=== PATIENT | male | born 1965 | race Caucasian/White ===

== ENCOUNTER 2016-11-29 16:36 | Inpatient (IN) | payer OTHER ==
[~2016-11-29] VITALS: Ht 182.9 cm; Wt 72.0 kg
--- NOTE | 2016-11-29 17:56 | DIAGNOSTIC IMAGING REPORT ---
PROCEDURE: CT HEAD WITHOUT CONTRAST INDICATION: MENTAL STATUS CHANGE TECHNIQUE: Axial CT images were acquired through the head. Coronal and sagittal reformations were created. COMPARISON: None. FINDINGS: No intracranial hemorrhage or extraaxial fluid collections. Ventricles are normal in size, shape and position. There is no mass, mass effect or midline shift. The alvarez-white matter differentiation is normal. There is no edema. The calvarium is intact. There is some fluid in the right frontal sinus along with some mucoperiosteal thickening. The extracranial soft tissues and orbits are normal. IMPRESSION: 1. No CT evidence of acute intracranial process. Right frontal sinus fluid and mucoperiosteal thickening. 2. Findings discussed with Behzad at 05:[address] scans at this facility use dose modulation, iterative reconstruction, and/or weight-based dosing when appropriate to reduce radiation dose to as low as reasonably achievable.
--- NOTE | 2016-11-29 20:09 | DIAGNOSTIC IMAGING REPORT ---
PROCEDURE: XR CHEST 1 VIEW INDICATION: COUGH TECHNIQUE: Portable AP view (1905 hours). COMPARISON: None. FINDINGS: There are moderate increase parenchymal change in the right mid lung with mild thickening of the minor fissure. Left lung is clear. Heart and mediastinum are normal. Thorax is normal. IMPRESSION: 1. Moderate increased parenchymal changes in the right perihilar region and right mid lung. Consider pneumonia (e.g., aspiration, bacterial)) or underlying lung mass (e.g., neoplasm). 2. Findings discussed with Dr. Medardo Wen.
--- NOTE | 2016-11-29 20:48 | History & Physical Report ---
Admission Admit Date 11/29/16 Information Source Information Source: Self Reliability: Good History Chief Complaint Weakness, Falls, Feeling Unwell History of Present Illness Patient is a 51 year old male with a hx of Alcoholism and Tobacco Use Disorder. He presents to the ER at [facility] complaining of a 1 day hx of significant weakness and inability to ambulate. Pt states he woke up yesterday, and did not have the strength to stand up. He states he is now not able to walk as he is so weak. Pt states he has been feeling unwell over the last 2 weeks. Pt states he has had a cough, with intermittent tactile fever and chills as well as nausea. Pt reports he has had increasing lethargy over the last 2 weeks and his speech has been slurred over the same period of time. Pt states he does drink beer regularly. His last drink was last night. Pt states his cough is productive of thick yellow colored sputum. He denies any chest pain but does report some mild shortness of breath. On further questioninging, pt reports an unintentional 50 lb weight loss over the last 5-6 months, as well as drenching night sweats regularly. Pt denies hemoptysis. Pt has no other complaints or concerns at this time. Patient History 1. Alcoholism 2. Tobacco use disorder Social History Pt smokes 1 pack of cigarettes daily. He also regularly drinks 3-4 beers a day. He denies any hx of illicit drug use. Family History MOTHER Relation not specified for: Esophageal cancer Medications and Allergies Medications Current Medications Sig/Norberto Start time Last Medication Dose Route Stop Time Status Admin Multivit/ 1 TAB DAILY 11/30 09 UNV Folic Acid/Iron PO Thiamine HCl 100 MG DAILY 11/30 09 UNV PO Pantoprazole Sodium 40 MG DAILY@0600 11/30 0600 UNV IV Diazepam 5 MG PRN PRN 11/29 2014 UNV IV Haloperidol Lactate 2 MG Q1H PRN 11/29 2014 UNV IV Azithromycin 500 MG DAILY 11/29 2004 UNVr Sodium Chloride 250 ML IV 12/01 1000 Ceftriaxone Sodium/ 50 ML DAILY 11/29 2003 UNVr Dextrose IV Acetaminophen 650 MG Q4H PRN 11/29 1999 UNV PO Albuterol Sulfate 2.5 MG Q3H PRN 11/29 1999 UNV IN Docusate Sodium 250 MG BID PRN 11/29 1999 UNV PO Hydromorphone HCl 1 MG Q6H PRN 11/29 1999 UNV IV Naloxone HCl 0.4 MG PRN PRN 11/29 1999 UNV IV Ondansetron HCl 4 MG Q6H PRN 11/29 1999 UNV IV Zolpidem Tartrate 5 MG QHS PRN 11/29 1999 UNV PO Patient states he is not taking any medications currently. Allergies Coded Allergies: NKA (11/29/16) Review of Systems Other All systems reviewed and are negative except for what has already been mentioned in the HPI. Physical Exam Vital Signs / I&Os TEMP: 99.0 BP: 112/78 HR: 96 RR: 18 SpO2: 92% on room air GENERAL: NAD; Pt laying comfortably in bed HEENT: AT/NC; PERRLA, EOMI; MM Moist CARDIAC: RRR, No M/R/G appreciated PULM: Coarse breath sounds throughout bilateral lungs without any wheezes present ABD: Soft, NT, ND, Positive BS in all quadrants; No hepatosplenomegaly appreciated EXT: No C/C/E in bilateral upper and lower extremity; No calve tenderness bilaterally SKIN: Warm, dry, pink, and intact NEURO: Alert and oriented x3; Following all commands PSYCH: Normal mood and affect LAB Results Laboratory Tests 11/29 1711 Chemistry Plasma Sodium (136 - 145 mmol/L) Pending 123 Plasma Potassium (3.5 - 5.1 mmol/L) 4.3 Plasma Chloride (98 - 107 mmol/L) 88 CO2 (Enzymatic) (21 - 32 mmol/L) 26 BUN (7 - 18 mg/dL) 19 Creatinine (0.6 - 1.3 mg/dL) 0.8 Est GFR ( Amer) (mL/min) >60 Est GFR (Non-Af Amer) (mL/min) >60 Glucose (70 - 110 mg/dL) 111 Plasma Calcium (8.5 - 10.1 mg/dL) 7.8 Plasma Magnesium Pending Total Bilirubin (0.0 - 1.0 mg/dL) 0.4 AST (15 - 37 U/L) 53 ALT (12 - 78 U/L) 36 Alkaline Phosphatase (46 - 116 U/L) 70 Total Protein (6.4 - 8.2 g/dL) 6.5 Albumin (3.3 - 5.0 g/dL) 2.7 Hematology WBC (4.5 - 11.5 K/uL) 7.6 RBC (4.50 - 5.90 M/uL) 4.71 Hgb (13.5 - 17.5 gm/dL) 14.3 Hct (41.0 - 53.0 %) 43.0 MCV (80 - 100 fL) 91 MCH (26 - 34 pg) 30 RDW (11.6 - 14.8 %) 13.4 Neut % (Auto) (50 - 75 %) 88.0 Lymph % (Auto) (25 - 40 %) 6.4 [place] % (Auto) (3 - 14 %) 5.6 Eos % (Auto) (0 - 4 %) 0 Baso % (Auto) (0 - 2 %) 0 Plt Count, EDTA (150 - 400 K/uL) 138 PUBS MCHC (31 - 37 g/dL) 33 Microbiology Date/Time Procedure - Status Source Growth 11/29 2019 Blood Culture - RECD BLOOD 11/29 2009 Blood Culture - RECD BLOOD 11/29 170 Influenza Screen - COMP NASALPHAR Imaging XR CHEST 1 VIEW INDICATION: COUGH TECHNIQUE: Portable AP view (1905 hours). COMPARISON: None. FINDINGS: There are moderate increase parenchymal change in the right mid lung with mild thickening of the minor fissure. Left lung is clear. Heart and mediastinum are normal. Thorax is normal. IMPRESSION: 1. Moderate increased parenchymal changes in the right perihilar region and right mid lung. Consider pneumonia (e.g., aspiration, bacterial)) or underlying lung mass (e.g., neoplasm). 2. Findings discussed with Dr. Medardo Wen. Assessment and Plan Problem List 1. Hyponatremia Plan - Will admit patient under inpatient status to CCU given neurologic symptoms related to hyponatremia - Will fluid restrict patient to 1000 mL - Check Na q 2 hours for the next 12 hours - Will not give pt any IV fluids at this time - Hyponatremia is secondary to beer potomania vs related to possible chest mass 2. Pneumonia Plan - Possible community acquired pneumonia present on admission - Chest x-ray shows a possible mass in the right hilum, therefore I will order a CT of the Chest at this time with contrast - Start IV Rocephin - Start IV Azithromycin - Check Procalcitonin - Check CRP - Check urine Strep Pneumoniae Ag - Check urine Legionella Ag - Supplemental O2 to keep SpO2 greater than 92% - Albuterol nebs q 3 hours PRN - Repeat CBC with diff in AM - Influenza screen was negative 3. Alcoholism Plan - Start Alcohol Withdrawal Protocol now - Give Thiamine daily - Give Multivitamin daily - Will not start pt on banana bag at this time as I am fluid restricting him at this time and do not want to infuse Normal Saline at this time - IV Haldol PRN for hallucinations 4. Tobacco use disorder Plan - Pt counseled to quit smoking
--- NOTE | 2016-11-29 21:16 | DIAGNOSTIC IMAGING REPORT ---
PROCEDURE: CT THORAX WITH CONTRAST INDICATION: Follow up right lung pneumonia versus mass. TECHNIQUE: 125 ml of Isovue 300 injected intravenously and axial images were obtained of the entire thorax with sagittal and coronal reconstructions. COMPARISON: Compared to chest x-ray earlier today (11/29/2016). FINDINGS: There is moderate to marked consolidation/atelectasis in the right middle lobe. There are moderate parenchymal changes in the superior segment right lower lobe, with mild change in the right posterior lung base. These findings are associated with moderate right hilar adenopathy with small right pleural effusion. There are mild to moderate parenchymal changes in the left perihilar region (lingular distribution). Heart and mediastinum are normal size. Mild degenerate changes thoracic spine with accentuation of the thoracic kyphosis. IMPRESSION: 1. Moderate to marked consolidation/atelectasis in right middle lobe with moderate changes in the superior segment right lower lobe, with mild changes at the right lung base. 2. Associated right hilar adenopathy a small right pleural effusion. 3. Mild parenchymal changes in the left mid lung (lingular distribution). 4. Overall appearance is most compatible with a pneumonic process (e.g., bacterial, Mycoplasma), although right lung neoplastic process might also be considered. 5. Follow-up CT after the patient acute illness (2-3 weeks) is recommended to confirm resolution. 6. Findings discussed with Dr. Medardo Wen. All CT scans at this facility use dose modulation, iterative reconstruction, and/or weight-based dosing when appropriate to reduce radiation dose to as low as reasonably achievable.
--- NOTE | 2016-11-29 21:20 | DIAGNOSTIC IMAGING REPORT ---
PROCEDURE: CT ABD/PELVIS WITH CONTRAST INDICATION: Weight loss. Abdominal pain. Possible lung mass. . TECHNIQUE: 125 ml of Isovue 300 were injected intravenously and axial images were obtained of the entire abdomen and pelvis with sagittal and coronal reformations. COMPARISON: None. FINDINGS: ABDOMEN: Gallbladder, liver, spleen, pancreas, kidneys, and aorta are normal. Bowel pattern is normal. Appendix is not clearly identified, but no evidence of inflammatory process. Moderate degenerative changes of the lower lumbar spine. PELVIS: Pelvic structures are normal. No evidence of free fluid. IMPRESSION: 1. Negative CT abdomen and pelvis. No evidence of neoplastic process or adenopathy. 2. Findings discussed with Dr. Medardo Wen. All CT scans at this facility use dose modulation, iterative reconstruction, and/or weight-based dosing when appropriate to reduce radiation dose to as low as reasonably achievable.
--- NOTE | 2016-11-29 21:31 | ED ORDER SUMMARY ---
..... Patient: NIRAJ TOMPKINS [facility]Sheet [facility] VisitID: [id number] [place] [address] 51y, M Registration Date/Time: 11/29/2016 ORDER SHEET Weight: 79.3 kg (stated) Allergies: No Known Drug Allergy GENERAL ORDERS: CT Head wo Cont Urgent (17:04 11/29/2016 Anette Hernandez) (Ack 17:13 Ines) (17:47 MCampbell) Rapid Influenza Screen (Nasal Pharyngeal) (...) Urgent (17:05 11/29/2016 Anette Hernandez) (Ack 17:13 Ines) (17:21 LSullivan R.N.) CBC w Diff Urgent (17:05 11/29/2016 Anette Hernandez) (Ack 17:13 Ines) (17:21 LSzofiaivan R.N.) CMP Urgent (17:05 11/29/2016 Anette Hernandez) (Ack 17:13 Ines) (17:21 LSullivan R.N.) Chest 1V Urgent (18:57 11/29/2016 Anette Hernandez) (Ack 19:17 Ines) (19:42 MCampbell) Blood Culture (No) (N/A) Urgent (20:05 11/29/2016 Anette Hernandez) (Ack 20:12 CHagerty [facility] 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) (20:43 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 [facility] [employer]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) CT Thorax w Cont (No) (19/0.8) Urgent (20:11 11/29/2016 Anette Hernandez) (Ack 20:13 Rakesherty [facility] 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) (20:43 CHagerty ER [employer]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) CT Abd/Pel w Cont (No) (N/A) Urgent (20:33 11/29/2016 Isai [facility] 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 verbal order read back to Anette Hernandez) (Ack 20:36 CHagerty [facility] [employer]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 (21:48 11/29/2016)] [Electronically signed by Cipriano Yanez R.N. (07:00 11/30/2016)] [Electronically locked/signed by Cipriano Yanez R.N. (07:00 11/30/2016)]
--- NOTE | 2016-11-29 21:31 | ED CLINICAL REPORT ---
Clinical Report - Physicians/Mid Levels [facility] [address] [place] [address] 11/29/2016 16:38 Patient: NIRAJ TOMPKINS Time Seen: 16:42; initial patient contact. Arrived- By ambulance. Historian- patient. HISTORY OF PRESENT ILLNESS Chief Complaint: "FLU" and possible FLU EXPOSURE. This started about 4 days ago and is still present. It was gradual in onset. No fever, skin rash, headache, sinus drainage or sore throat. No chills, cough, difficulty breathing or chest discomfort or chest pain. No vomiting, diarrhea or loss of appetite. He has had nausea, nasal congestion and a nasal discharge. The patient has had contact with a sick individual. (Also slurred speech x 2 weeks.). Similar symptoms previously: None. Recent medical care: Not recently seen/assessed. REVIEW OF SYSTEMS No fatigue, photophobia, sinus pain, weakness or palpitations. No calf pain or abdominal pain. All systems otherwise negative, except as recorded above. PAST HISTORY RA. Surgeries: No history of previous surgery. Additional Surgeries: no known surgeries. SOCIAL HISTORY Current every day heavy tobacco smoker. Heavy alcohol use. History of drug use: marijuana. ADDITIONAL NOTES The nursing notes have been reviewed with agreement regarding the chief complaint, PMH and patient medications and allergies. PHYSICAL EXAM Vital Signs: 11/29/2016 16:49 BP: 129/74. HR: 106. RR: 18. O2 saturation: 96%. Temp: 101.5 F. Pain level now: 0/10. Have been reviewed. Blood pressure normal. Tachycardic. Respiratory rate normal. Febrile. Oxygen saturation normal. Appearance: Alert. No acute distress. Eyes: Pupils equal, round and reactive to light. Eyes normal inspection. ENT: Mild generalized pharyngeal erythema with right tonsillar swelling and left tonsillar swelling. Neck: No meningeal signs or lymphadenopathy. CVS: Normal heart rate and rhythm. Heart sounds normal. Respiratory: No respiratory distress. Breath sounds normal. Abdomen: Soft and nontender. No organomegaly. Skin: Skin warm and dry. Normal skin color. Extremities: Extremities exhibit normal ROM. No calf tenderness. No lower extremity edema. Neuro: Oriented X 3. No motor deficit. No sensory deficit. LABS, X-RAYS, AND EKG Chest X-ray: Medium-sized, patchy infiltrate in the right perihilar region and small infiltrate in the left lung. Consistent with pneumonia. Interpretation time: 20:01. CT Head: (1. No CT evidence of acute intracranial process. Right frontal sinus fluid and mucoperiosteal thickening.). Head CT performed without contrast. Prior studies were not available for comparison. The study was interpreted by the radiologist and discussed with the radiologist. Chest CT: (1. Moderate to marked consolidation/atelectasis in right middle lobe with moderate changes in the superior segment right lower lobe, with mild changes at the right lung base. 2. Associated right hilar adenopathy a small right pleural effusion. 3. Mild parenchymal changes in the left mid lung (lingular distribution). 4. Overall appearance is most compatible with a pneumonic process (e.g., bacterial, Mycoplasma), although right lung neoplastic process might also be considered. 5. Follow-up CT after the patient acute illness (2-3 weeks) is recommended to confirm resolution.). Chest CT performed with contrast. The study was independently viewed by me, interpreted by the radiologist and discussed with the radiologist. Prior studies were not available for comparison. Laboratory Tests: CBC w Diff: (WYATT: 11/29/2016 17:11) ( MsgRcvd 11/29/2016 17:23) Final results Test Result Flag Units (Reference) WHITE BLOOD COUNT 7.6 K/uL (4.5-11.5) RED BLOOD COUNT 4.71 M/uL (4.50-5.90) HEMOGLOBIN 14.3 gm/dL (13.5-17.5) HEMATOCRIT 43.0 % (41.0-53.0) MEAN CELL VOLUME 91 fL (80-100) MEAN CORPUSCULAR HGB 30 pg (26-34) MEAN CORPUSCULAR HGB CONC 33 g/dL (31-37) RED CELL DISTRIBUTION WIDTH 13.4 % (11.6-14.8) PLATELET COUNT 138 L K/uL (150-400) NEUTROPHIL % 88.0 H % (50-75) LYMPH % 6.4 L % (25-40) MONO % 5.6 % (3-14) EOSINOPHIL % 0 % (0-4) BASOPHIL % 0 % (0-2) CMP: (WYATT: 11/29/2016 17:11) ( [facility] 17[facility]45) Final results Test Result Flag Units (Reference) GLUCOSE 111 H mg/dL (70-110) BUN 19 H mg/dL (7-18) CREATININE 0.8 mg/dL (0.6-1.3) Estimated GFR >60 mL/min Estimated GFR- >60 mL/min Note: Persistent reduction over 3 months in eGFR<60 mL/min/1.73 m2 defines CKD. Patients with eGFR values>=60 mL/min/1.73 m2 may also have CKD if evidence ofpersistent proteinuria. Additional information may be foundat www.kidney.org. SODIUM 123 L mmol/L (136-145) POTASSIUM 4.3 mmol/L (3.5-5.1) CHLORIDE 88 L mmol/L (98-107) CARBON DIOXIDE 26 mmol/L (21-32) CALCIUM 7.8 L mg/dL (8.5-10.1) TOTAL PROTEIN 6.5 g/dL (6.4-8.2) ALBUMIN 2.7 L g/dL (3.3-5.0) BILIRUBIN, TOTAL 0.4 mg/dL (0.0-1.0) ALKALINE PHOSPHATASE 70 U/L (46-116) AST (SGOT) 53 H U/L (15-37) ALT (SGPT) 36 U/L (12-78) Rapid Influenza Screen: (WYATT: 11/29/2016 17:00) ( MsgRcvd 11/29/2016 17:25) Final results SPECIMEN DESCRIPTION: ... Test Result Flag Units (Reference) RAPID INFLUENZA SCREEN DATE: 11/29/16 INFLUENZA A: NEGATIVE SCREEN FOR INFLUENZA A INFLUENZA B: NEGATIVE SCREEN FOR INFLUENZA B RAPID INFLUENZA NEGATIVE FOR "A" "B". . PROGRESS AND PROCEDURES Course of Care: 11/29/2016 21:12 BP: 130/80. HR: 97. RR: 18. O2 saturation: 99%. Vital Signs: have been reviewed as normal. Disposition: Admitted to the Critical Care Unit. Condition: good. CLINICAL IMPRESSION Bacterial pneumonia. Empiric antibiotics given in the ED. Moderate hyponatremia. INSTRUCTIONS Follow-up: Screening today revealed the patient's blood pressure to be in the pre-hypertensive range. The patient was admitted and blood pressure will be managed during the admission. (Electronically signed by Medardo Wen Dr. 11/29/2016 21:48)
--- NOTE | 2016-11-29 21:31 | ED NURSING NOTES ---
Clinical Report - Nurses [facility] [place] [address] 11/29/2016 16:38 Patient: NIRAJ TOMPKINS TRIAGE Triage time 16:42. Acuity: LEVEL 3. Chief Complaint: "FLU", FEVER, COUGH, SORE THROAT and BODY ACHES and possible FLU EXPOSURE. Alert. --16:49 Jeny Louise R.N. 16:49 11/29/16. BP: 129/74. HR: 106. RR: 18. O2 saturation: 96%. Temp: 101.5 F. Pain level now: 0/10. --16:52 Jeny Louise R.N. Weight: 79.3 kg stated. Height/Length: 71 inches Per Patient. BMI: 24.4. --16:45 Jeny Louise R.N. Medications None. --18:07 Jeny Louise R.N. Allergies No Known Drug Allergy. --18:07 Jeny Louise R.N. History Arrived by EMS, and (A68). Historian: patient. Accompanied by (significant other). Primary physician (none). Onset. (2 weeks, got better, then worse today, had vomiting and diarrhea). He has had chills. ( slurred speech x 2 weeks, pt states "ketones are high"). No chest congestion. SURGERY HX: No history of previous surgery. SOCIAL HX: Heavy tobacco smoker (cigarette)- 1 pack per day. Alcohol use; consumes beer daily. (2, 14% fourloco beers). History of drug use: marijuana. No recent travel. The patient was not exposed to MRSA. FALL RISK ASSESSMENT: Fall risk assessment completed. No fall risk identified. --16:49 Jeny Louise R.N. ( Pt fell 4-5 times last night, was dizzy). --16:52 Jeny Louise R.N. PROBLEMS: Rheumatoid Arthritis. --16:43 Jeny Louise R.N. ADDITIONAL SURGERIES: no known surgeries. Interventions ID band on patient. To room. --16:49 Jeny Louise R.N. PHYSICAL ASSESSMENT GENERAL / NEURO / PSYCH: Alert. ( Pt's speech is difficult to understand at times.). --16:52 Jeny Louise R.N. NURSING PROGRESS NOTES 16:54 11/29/16. Patient identifiers checked. Call light placed in reach. Bed placed in lowest position. Patient ready for evaluation- chart flagged. --16:54 Jeny Louise R.N. 17:22 11/29/2016 Site #1 started via IV in the right forearm with an 20g angiocath, with aseptic technique and good blood return; one attempt. Blood drawn (able to draw a red and purple top only). --17:22 Jeny Louise R.N. 17:22 11/29/2016 Started bag #1 1000 mL IV Fluids IV NS (Saline); at 999 mL/hr via site #1 via IV pump. Confirmed 5 rights. --17:22 Jeny Louise R.N. 17:55 11/29/2016 Zofran (Ondansetron HCl) IVP 4 mg given over 2 minute(s) via site #1. Allergies verified and confirmed 5 rights. --17:55 Jeny Louise R.N. 17:55 11/29/16. Patient returned from CT by stretcher with tech. ( Pt nauseated, emesis bag placed in hand, ERMD notified). --17:55 Jeny Louise R.N. 19:03 11/29/16. BP: 136/82. HR: 99. RR: 18. O2 saturation: 95%. --19:04 Jeny Louise R.N. 19:05 11/29/2016 IV Fluids IV NS Discontinued: bag #1 infused. Total amount infused: 1000 mL. IV patency established. IV site checked: no pain, redness, or swelling. IV flushed thoroughly. (converted to saline lock). --19:05 Jney Louise R.N. 19:05 11/29/16. ( Portable chest xray done.). --19:05 Jeny Louise R.N. 19:14 11/29/16. Care transferred and report given (to PEE Cota). --19:14 Jeyn Louise R.N. 20:00 11/29/16. BP: 115/54. HR: 109. RR: 18. O2 saturation: 92%. --20:01 Cipriano Yanez R.N. 20:46 11/29/2016 Started 1 gm of Ceftriaxone IVPB in bag #1 50 mL; at 100 mg/hr over 30 minute(s) via site #1 via IV pump. Allergies verified and confirmed 5 rights. IV patency established. IV site checked: no pain, redness, or swelling. IV flushed thoroughly pre- and post-medication administration. --20:46 Cipriano Yanez R.N. 20:46 11/29/16. BP: 133/79. HR: 96. RR: 18. O2 saturation: 96%. --20:47 Cipriano Yanez R.N. 21:02 11/29/2016 Ceftriaxone IVPB Discontinued: bag #1 infused. Total amount infused: 50 mL. IV patency established. IV site checked: no pain, redness, or swelling. IV flushed thoroughly. --21:02 Cipriano Yanez R.N. ( 3% saline not available at this time, MD aware). --21:13 Cipriano Yanez R.N. 21:12 11/29/16. BP: 130/80. HR: 97. RR: 18. O2 saturation: 99%. --21:13 Cipriano Yanez R.N. DISPOSITION / DISCHARGE Admitted to the Critical Care Unit. Report was given to a nurse via a phone call. Report included patient's care, treatment, medications, reviewed medication reconcilliation, and condition (including any recent changes or anticipated changes). Report was acknowledged. (Report called to ccu). ( Pt verbalized understanding of admission call questions answered at this time). Patient's personal items include: shirt and pants. --22:05 Cipriano Yanez R.N. 22:00 11/29/16. BP: 134/72. HR: 80. RR: 18. O2 saturation: 99%. Temp: 102.8 F. Pain level now 0/10. --22:05 Cipriano Yanez R.N. ( 0 MD aware of temp no orders at this time. Accepting RN aware of Temp). --02:04 Cipriano Yanez R.N. Locked/Released at 11/30/2016 7:00 by Cipriano Yanez R.N.
--- NOTE | 2016-11-29 21:31 | ED ORDER SUMMARY ---
..... Patient: NIRAJ TOMPKINS OrderSheet [facility] VisitID: [id number] [place] [address] 51y, M Registration Date/Time: 11/29/2016 ORDER SHEET Weight: 79.3 kg (stated) Allergies: No Known Drug Allergy GENERAL ORDERS: CT Head wo Cont Urgent (17:04 11/29/2016 Anette Hernandez) (Ack 17:13 Ines) (17:47 MCampbell) Rapid Influenza Screen (Nasal Pharyngeal) (...) Urgent (17:05 11/29/2016 Anette Hernandez) (Ack 17:13 Ines) (17:21 LSullivan R.N.) CBC w Diff Urgent (17:05 11/29/2016 Anette Hernandez) (Ack 17:13 Ines) (17:21 LSzofiaivan R.N.) CMP Urgent (17:05 11/29/2016 Anette Hernandez) (Ack 17:13 Ines) (17:21 LSullivan R.N.) Chest 1V Urgent (18:57 11/29/2016 Anette Hernandez) (Ack 19:17 Ines) (19:42 MCampbell) Blood Culture (No) (N/A) Urgent (20:05 11/29/2016 Anette Hernandez) (Ack 20:12 CHagerty ER Music Assistant) (20:43 CHagerty ER Music Assistant) CT Thorax w Cont (No) (19/0.8) Urgent (20:11 11/29/2016 Anette Hernandez) (Ack 20:13 Rakesherty ER Music Assistant) (20:43 CHagerty ER Music Assistant) CT Abd/Pel w Cont (No) (N/A) Urgent (20:33 11/29/2016 Isai ER Music Assistant verbal order read back to Anette Hernandez) (Ack 20:36 CHagerty ER Music Assistant) (20:43 CHagclarice ER Music Assistant) MEDICATION ORDERS: - (3% saline IV @ 20mL/hour) (20:08 11/29/2016 Anette Hernandez) IV FLUIDS: IV NS : initial bolus none -, then 1000 mL/hr for X1 (NOW) (17:03 11/29/2016 Anette Hernandez) (17:22 Vadim R.N.) Zofran IV 4 mg (NOW) (17:55 11/29/2016 Anette Hernandez) (17:55 Vadim R.N.) Ceftriaxone IV 1 gm/50mL (NOW) (20:10 11/29/2016 Anette Hernandez) (20:46 Chad Miles.Roosevelt) ORDER SHEET NOTES: [Electronically signed by Medardo Wen Dr. (21:48 11/29/2016)] [Electronically signed by Cipriano Yanez R.N. (07:00 11/30/2016)] [Electronically locked/signed by Cipriano Yanez R.N. (07:00 11/30/2016)]
[2016-11-29 22:33] VITALS: BP 140/82
[2016-11-29 23:30] VITALS: BP 146/79
[2016-11-30] VITALS (23 sets, daily range): BP systolic 104–148; BP diastolic 58–85
--- NOTE | 2016-11-30 01:07 | NUR ---
Pt arrived via stretcher from ED, pt stood to transfer to bed, pt has generalized weakness and speech can be quiet and mumbled, GARRISON, all extremities WNR, no pain issues. SR-ST 90-120 no ectopy, fluid restriction 1000cc/24hr, few right rhonchi, strong moist non productive cough, pt reports coughing yellow sputum prior to admission at home. Pt reports poor appetite/ weight loss. Pt reports girl friend had been "sick for a couple of weeks but is over it now". Pt reports having many falls at home. Temp upon admit 99.7 oral. Call light in reach and bed alarm on for safety and fall prevention.
--- NOTE | 2016-11-30 07:00 | ED DISCHARGE INSTRUCTIONS ---
Patient: NIRAJ TOMPKINS General Instructions [facility] VisitID: [id number] [address] [place] [place] [address] 51y, M Registration Date/Time: 11/29/2016 Bacterial pneumonia. Empiric antibiotics given in the ED. Moderate hyponatremia. INSTRUCTIONS Follow-up: Screening today revealed the patient's blood pressure to be in the pre-hypertensive range. The patient was admitted and blood pressure will be managed during the admission. (Electronically signed by Medardo Wen Dr. 11/29/2016 21:48)
--- NOTE | 2016-11-30 07:00 | ED MAR SUMMARY ---
..... Medication Administration Record [facility] [address] [place] [address] Patient: NIRAJ TOMPKINS Visit ID: [id number] 51y, M Weight: 79.3 kg Height/Length: 71 in BMI: 24.4 ALLERGIES: No Known Drug Allergy Start 17:22 11/29/2016 Jeny Louise R.N., Stop 19:05 11/29/2016 Jeny Louise R.N. Medication Administered: IV NS (SALINE), Dose: IV Fluids, Rate: 999 mL/hr, Dispensed: 1000 mL bag, Site: #1 right forearm. Medication Ordered: IV NS : initial bolus none -, then 1000 mL/hr for X1 (NOW). Given 17:55 11/29/2016 Jeny Louise R.N. Medication Administered: ZOFRAN [IVP] (ONDANSETRON HCL), Dose: 4 mg IVP over 2 minute(s), Site: #1 right forearm. Medication Ordered: Zofran IV 4 mg (NOW). Start 20:46 11/29/2016 Cipriano Yanez R.N., Stop 21:02 11/29/2016 Cipriano Yanez R.N. Medication Administered: CEFTRIAXONE [IVPB], Dose: 1 gm IVPB over 30 minute(s), Rate: 100 mg/hr, Dispensed: 50 mL bag, Site: #1 right forearm. Medication Ordered: Ceftriaxone IV 1 gm/50mL (NOW).
--- NOTE | 2016-11-30 07:00 | ED DISCHARGE INSTRUCTIONS ---
Patient: NIRAJ TOMPKINS General Instructions [facility] VisitID: [id number] [address] [place] [address] 51y, M Registration Date/Time: 11/29/2016 Bacterial pneumonia. Empiric antibiotics given in the ED. Moderate hyponatremia. INSTRUCTIONS Follow-up: Screening today revealed the patient's blood pressure to be in the pre-hypertensive range. The patient was admitted and blood pressure will be managed during the admission. (Electronically signed by Medardo Wen Dr. 11/29/2016 21:48)
--- NOTE | 2016-11-30 07:00 | ED MAR SUMMARY ---
..... Medication Administration Record [facility] [address] [place] [address] Patient: NIRAJ TOMPKINS Visit ID: [id number] 51y, M Weight: 79.3 kg Height/Length: 71 in BMI: 24.4 ALLERGIES: No Known Drug Allergy Start 17:22 11/29/2016 Jeny Louise R.N., Stop 19:05 11/29/2016 Jeny Louise R.N. Medication Administered: IV NS (SALINE), Dose: IV Fluids, Rate: 999 mL/hr, Dispensed: 1000 mL bag, Site: #1 right forearm. Medication Ordered: IV NS : initial bolus none -, then 1000 mL/hr for X1 (NOW). Given 17:55 11/29/2016 Jeny Louise R.N. Medication Administered: ZOFRAN [IVP] (ONDANSETRON HCL), Dose: 4 mg IVP over 2 minute(s), Site: #1 right forearm. Medication Ordered: Zofran IV 4 mg (NOW). Start 20:46 11/29/2016 Cipriano Yanez R.N., Stop 21:02 11/29/2016 Cipriano Yanez R.N. Medication Administered: CEFTRIAXONE [IVPB], Dose: 1 gm IVPB over 30 minute(s), Rate: 100 mg/hr, Dispensed: 50 mL bag, Site: #1 right forearm. Medication Ordered: Ceftriaxone IV 1 gm/50mL (NOW).
--- NOTE | 2016-11-30 07:01 | ED MED RECONCILIATION SUMMARY ---
Patient: NIRAJ TOMPKINS Medication Reconciliation Report [facility] VisitID: [id number] [address] [place] [address] 51y, M Registration Date/Time: 11/29/2016 Weight: 79.3 kg Height/Length: 71 in. BMI: 24.4 ALLERGIES: No Known Drug Allergy The patient's Home Medications are listed below: NONE. The source(s) of the original Home Medication information: Not obtained. The following Medications were given to the patient in the Emergency Department: IV NS IV Fluids bolus 0, then 999 mL/hr, administered: 11/29/2016 5:22:00 PM Zofran [IVP] IVP 4 mg, administered: 11/29/2016 5:55:00 PM Ceftriaxone [IVPB] IVPB bolus 0, then 1 gm 100 mg/hr, administered: 11/29/2016 8:46:00 PM The following Medications were prescribed to the patient: None.
--- NOTE | 2016-11-30 07:01 | ED MED RECONCILIATION SUMMARY ---
Patient: NIRAJ TOMPKINS Medication Reconciliation Report [facility] VisitID: [id number] [address] [place] [address] 51y, M Registration Date/Time: 11/29/2016 Weight: 79.3 kg Height/Length: 71 in. BMI: 24.4 ALLERGIES: No Known Drug Allergy The patient's Home Medications are listed below: NONE. The source(s) of the original Home Medication information: Not obtained. The following Medications were given to the patient in the Emergency Department: IV NS IV Fluids bolus 0, then 999 mL/hr, administered: 11/29/2016 5:22:00 PM Zofran [IVP] IVP 4 mg, administered: 11/29/2016 5:55:00 PM Ceftriaxone [IVPB] IVPB bolus 0, then 1 gm 100 mg/hr, administered: 11/29/2016 8:46:00 PM The following Medications were prescribed to the patient: None.
--- NOTE | 2016-11-30 08:54 | Progress Note ---
Subjective General Note Date: November 30, 2016 Admission Date: November 29, 2016 Hospital Day: 2 PCP: None Status: Inpatient Advanced Directive: FULL CODE Room: 304 Brief History: The patient is a 51-year-old white male with a significant past medical history of alcohol abuse/dependence, nicotine dependence-smoking, who presented to [facility] emergency department secondary to complaints of weakness, recurrent falls, and generalized malaise. [facility] ER evaluation was consistent with pneumonia, hyponatremia, alcohol abuse/dependence, and nicotine dependence-smoking. Secondary to the above, the patient was admitted by Christian Forrest M.D. for further evaluation and treatment. For other history present illness, past medical history, family history, social history, review of systems, and admission physical examination please see the patient's history and physical examination and ER visit note in the patient's medical record. Subjective: The patient states he is doing okay today other than generalized weakness. No nausea or vomiting. Patient requests: None Medications and Allergies Medications Current Medications Sig/Norberto Start time Last Medication Dose Route Stop Time Status Admin Ceftriaxone Sodium/ 50 ML Q24H 11/30 1999 AC 11/29 Dextrose IV 2320 Multivit/ 1 TAB DAILY 11/30 09 AC 11/30 Folic Acid/Iron PO 0851 Thiamine HCl 100 MG DAILY 11/30 0900 AC 11/30 PO 0851 Pantoprazole Sodium 40 MG DAILY@0600 11/30 0600 AC 11/30 IV 0559 Azithromycin 500 MG Q24H 11/29 2100 AC 11/29 Sodium Chloride 250 ML IV 12/01 2200 2351 Diazepam 5 MG PRN PRN 11/29 2014 AC IV Haloperidol Lactate 2 MG Q1H PRN 11/29 2014 AC IV Acetaminophen 650 MG Q4H PRN 11/29 1999 AC 11/30 PO 0851 Albuterol Sulfate 2.5 MG Q3H PRN 11/29 1999 AC IN Docusate Sodium 250 MG BID PRN 11/29 1999 AC PO Hydromorphone HCl 1 MG Q6H PRN 11/29 1999 AC IV Naloxone HCl 0.4 MG PRN PRN 11/29 1999 AC IV Ondansetron HCl 4 MG Q6H PRN 11/29 1999 AC IV Zolpidem Tartrate 5 MG QHS PRN 11/29 1999 AC PO Allergies Coded Allergies: NKA (11/30/16) Physical Exam Vital Signs / I&Os Vital Signs Date Time Temp Pulse Resp B/P Pulse O2 O2 Flow FiO2 Ox Delivery Rate 11/30 0735 102.6 11/30 0733 100 14 140/72 93 Nasal Cannula 11/30 0530 93 109/67 97 Nasal 2.0 Cannula 11/30 0515 94 99 Nasal 2.0 Cannula 11/30 0411 91 22 117/74 92 Nasal 2.0 Cannula 11/30 0330 Nasal 2.0 Cannula 11/30 0322 92 22 123/71 90 Room Air 11/30 0259 100.0 99 22 129/76 99 Room Air 11/30 0121 101.3 101 22 148/77 91 Room Air 11/30 0019 76 22 144/84 98 Room Air 11/29 2330 98 22 146/79 94 Room Air 11/29 2233 99.7 100 22 140/82 94 Room Air I&O 11/30 0000 11/29 1600 11/29 0800 Intake Total Output Total Balance General Appearance Oriented X3, Cooperative, No acute distress, Lethargic. Lungs Scattered rhonchi, otherwise clear to auscultation Cardiovascular Regular rate and rhythm, Normal S1 and S2 Abdomen Normal bowel sounds, Soft, No tenderness Extremities No cyanosis, No clubbing, No edema Neurological Cranial nerves intact, No lateralizing signs, generalized weakness. Finger to nose within normal limits. LAB Results Laboratory Tests 11/30 11/30 11/30 11/30 11/30 0825 0759 0405 0405 0405 Chemistry Plasma Sodium (136 - 145 mmol/L) 127 125 Plasma Potassium (3.5 - 5.1 mmol/L) 3.5 Plasma Chloride (98 - 107 mmol/L) 90 CO2 (Enzymatic) (21 - 32 mmol/L) 28 BUN (7 - 18 mg/dL) 17 Creatinine (0.6 - 1.3 mg/dL) 0.9 Est GFR ( Amer) (mL/min) >60 Est GFR (Non-Af Amer) (mL/min) >60 Glucose (70 - 110 mg/dL) 108 Plasma Calcium (8.5 - 10.1 mg/dL) 7.5 Ammonia Pending C-Reactive Protein (0.0 - 0.9 mg/dL) 28.1 Procalcitonin (0 - 0.5 ng/mL) 5.9 Coagulation INR Pending Hematology WBC (4.5 - 11.5 K/uL) 6.7 RBC (4.50 - 5.90 M/uL) 4.27 Hgb (13.5 - 17.5 gm/dL) 12.8 Hct (41.0 - 53.0 %) 38.9 MCV (80 - 100 fL) 91 MCH (26 - 34 pg) 30 RDW (11.6 - 14.8 %) 13.8 Neut % (Auto) (50 - 75 %) 87.0 Lymph % (Auto) (25 - 40 %) 7.1 [place] % (Auto) (3 - 14 %) 5.9 Eos % (Auto) (0 - 4 %) 0 Baso % (Auto) (0 - 2 %) 0 Plt Count, EDTA (150 - 400 K/uL) 125 PUBS MCHC (31 - 37 g/dL) 33 11/30 11/30 11/30 11/29 11/29 0305 0130 UNK 2330 2009 Chemistry Plasma Sodium (136 - 145 mmol/L) 125 121 122 123 Ammonia Cancelled Coagulation INR Cancelled Toxicology Urine Opiates Screen Cancelled Urine Methadone Screen Cancelled Ur Barbiturates Screen Cancelled U Amphetamin/Meth Scrn Cancelled MDMA (Ecstasy) Screen Cancelled U Benzodiazepines Scrn Cancelled Urine Cocaine Screen Cancelled U Cannabinoids Screen Cancelled 11/29 1711 Chemistry Plasma Sodium (136 - 145 mmol/L) 123 Plasma Potassium (3.5 - 5.1 mmol/L) 4.3 Plasma Chloride (98 - 107 mmol/L) 88 CO2 (Enzymatic) (21 - 32 mmol/L) 26 BUN (7 - 18 mg/dL) 19 Creatinine (0.6 - 1.3 mg/dL) 0.8 Est GFR ( Amer) (mL/min) >60 Est GFR (Non-Af Amer) (mL/min) >60 Glucose (70 - 110 mg/dL) 111 Plasma Calcium (8.5 - 10.1 mg/dL) 7.8 Plasma Magnesium (1.8 - 2.4 mg/dL) 1.9 Total Bilirubin (0.0 - 1.0 mg/dL) 0.4 AST (15 - 37 U/L) 53 ALT (12 - 78 U/L) 36 Alkaline Phosphatase (46 - 116 U/L) 70 Total Protein (6.4 - 8.2 g/dL) 6.5 Albumin (3.3 - 5.0 g/dL) 2.7 Hematology WBC (4.5 - 11.5 K/uL) 7.6 RBC (4.50 - 5.90 M/uL) 4.71 Hgb (13.5 - 17.5 gm/dL) 14.3 Hct (41.0 - 53.0 %) 43.0 MCV (80 - 100 fL) 91 MCH (26 - 34 pg) 30 RDW (11.6 - 14.8 %) 13.4 Neut % (Auto) (50 - 75 %) 88.0 Lymph % (Auto) (25 - 40 %) 6.4 [place] % (Auto) (3 - 14 %) 5.6 Eos % (Auto) (0 - 4 %) 0 Baso % (Auto) (0 - 2 %) 0 Plt Count, EDTA (150 - 400 K/uL) 138 PUBS MCHC (31 - 37 g/dL) 33 Microbiology Date/Time Procedure - Status Source Growth 11/30 0001 MRSA Screen - RECD NASAL 11/29 2019 Blood Culture - RECD BLOOD 11/29 2009 Blood Culture - RECD BLOOD 11/29 1700 Influenza Screen - COMP NASALPHAR Imaging CT Scan Chest IMPRESSION: 1. Moderate to marked consolidation/atelectasis in right middle lobe with moderate changes in the superior segment right lower lobe, with mild changes at the right lung base. 2. Associated right hilar adenopathy a small right pleural effusion. 3. Mild parenchymal changes in the left mid lung (lingular distribution). 4. Overall appearance is most compatible with a pneumonic process (e.g., bacterial, Mycoplasma), although right lung neoplastic process might also be considered. 5. Follow-up CT after the patient acute illness (2-3 weeks) is recommended to confirm resolution. 6. Findings discussed with Dr. Medardo Wen. All CT scans at this facility use dose modulation, iterative reconstruction, and/or weight-based dosing when appropriate to reduce radiation dose to as low as reasonably achievable. Dictated by: YAHAIRA HERNANDEZ MD D: LISA;11/29/16 2534 Assessment and Plan Problem List 1. Hyponatremia Plan -Improved -Sodium 127 (121-11/29/2016) -Continue present therapy -Monitor 2. Pneumonia Plan -Persistent fever -WBC within normal limits -Procalcitonin elevated at 5.9 -We'll add Zosyn to current medical regimen for enhance gram-negative/anaerobe therapy -Monitor 3. Alcoholism Plan -Patient with history of alcohol abuse -Alcohol withdrawal protocol -No clear alcohol withdrawal symptoms at this time. -Monitor 4. Illicit drug use Status Chronic Onset Date Unknown Plan -Patient with history of illicit drug use -Use of methamphetamine/marijuana -Encourage enrollment in alcohol/drug treatment post hospitalization -Monitor 5. Tobacco use disorder Plan -NicoDerm when necessary -Smoking cessation education -Encourage smoking abstinence post discharge Current status: Fair, unstable Anticipated discharge date: Anticipated discharge in 3-4 days Anticipated discharge placement: Home Patient care time: Time spent in chart review, patient interview, physical exam, CPOE, and care documentation: 35 minutes Visit to patient today: 1 Complexity of care: High E&M Codes Rounding: Inpt-High/[id number]
--- NOTE | 2016-11-30 20:06 | NUR ---
Patient has been sleeping most of the day. Patient wakes easily, but it's difficult to understand his speech. Does not show any signs of ETOH withdrawal. Has been incontinent of urine and stool, notified Dr. Beach of patient's loose stool and orders received to obtain stool sample for Cdiff. Patient is slightly tachycardic at times. No complaints of pain, nausea, or vomiting. Patient's bottom is red due to being incontinent of stool, and patient has two dime size open pressure sores on his back, at hip line. Photographic wound documentation form done and wound consult entered.
[2016-12-01] VITALS (19 sets, daily range): BP systolic 112–138; BP diastolic 54–93
--- NOTE | 2016-12-01 04:23 | NUR ---
Pt more alert and more responsive when questions are asked, 2 assist to BSC for a void and small stool. UA sent. Strong non-productive cough, 2 L n/c to maintain sats greater than 92%, pt will remove during night sats drop 85-87%, no exertional dyspnea, maintaining fluid restriction. Bed alarm for safety/fall prevention as pt will forget to use call light and attempt to self transfer and pt too weak.
--- NOTE | 2016-12-01 08:02 | Progress Note ---
Subjective General Note Date: December 01, 2016 Admission Date: November 29, 2016 Hospital Day: 3 PCP: None Status: Inpatient Advanced Directive: FULL CODE Room: 304 Brief History: The patient is a 51-year-old white male with a significant past medical history of alcohol abuse/dependence, nicotine dependence-smoking, who presented to [facility] emergency department secondary to complaints of weakness, recurrent falls, and generalized malaise. [facility] ER evaluation was consistent with pneumonia, hyponatremia, alcohol abuse/dependence, and nicotine dependence-smoking. Secondary to the above, the patient was admitted by Christian Forrest M.D. for further evaluation and treatment. For other history present illness, past medical history, family history, social history, review of systems, and admission physical examination please see the patient's history and physical examination and ER visit note in the patient's medical record. Subjective: The patient states he is doing okay today other than generalized weakness. No nausea or vomiting. Denies shortness of breath. Weakness slightly improved Patient requests: None Medications and Allergies Medications Current Medications Sig/Norberto Start time Last Medication Dose Route Stop Time Status Admin Ceftriaxone Sodium/ 50 ML Q24H 11/30 1999 AC 11/30 Dextrose IV 2000 Piperacillin/ 50 ML Q6HR 11/30 1800 AC 12/01 Tazobactam/Dextrose IV 0527 Multivit/ 1 TAB DAILY 11/30 0911/30 Folic Acid/Iron PO 0851 Thiamine HCl 100 MG DAILY 11/30 0900 AC 11/30 PO 0851 Pantoprazole Sodium 40 MG DAILY@0600 11/30 0600 AC 12/01 IV 0527 Azithromycin 500 MG Q24H 11/29 2100 11/30 Sodium Chloride 250 ML IV 12/01 Diazepam 5 MG PRN PRN 11/29 2014 AC IV Haloperidol Lactate 2 MG Q1H PRN 11/29 2014 AC IV Acetaminophen 650 MG Q4H PRN 11/29 1999 AC 11/30 PO 1714 Albuterol Sulfate 2.5 MG Q3H PRN 11/29 1999 AC IN Docusate Sodium 250 MG BID PRN 11/29 1999 AC PO Hydromorphone HCl 1 MG Q6H PRN 11/29 1999 AC IV Naloxone HCl 0.4 MG PRN PRN 11/29 1999 AC IV Ondansetron HCl 4 MG Q6H PRN 11/29 1999 AC IV Zolpidem Tartrate 5 MG QHS PRN 11/29 1999 AC PO Allergies Coded Allergies: NKA (11/30/16) Physical Exam Vital Signs / I&Os Vital Signs Date Time Temp Pulse Resp B/P Pulse O2 O2 Flow FiO2 Ox Delivery Rate 12/01 0717 105 21 123/54 97 Nasal 2.0 Cannula 12/01 0655 98.1 92 17 132/67 95 Nasal 2.0 Cannula 12/01 0400 92 17 128/75 92 Nasal 2.0 Cannula 12/01 0332 98.1 12/01 0300 94 20 127/65 97 Nasal 2.0 Cannula 12/01 0200 105 20 131/71 94 Nasal 2.0 Cannula 12/01 0100 100 20 134/84 95 Nasal 2.0 Cannula 12/01 0000 98.6 90 17 138/71 99 Nasal 2.0 Cannula 11/30 2300 101 22 140/68 94 Nasal 2.0 Cannula 11/30 2213 99 22 119/61 96 Nasal 2.0 Cannula 11/30 2100 93 19 119/61 97 Nasal 2.0 Cannula 11/30 2007 85 15 125/64 94 Nasal 2.0 Cannula 11/30 1905 98.8 90 15 133/67 95 Nasal 2.0 Cannula 11/30 1818 99.0 108 20 126/58 95 Nasal 2.0 Cannula 11/30 1700 92 21 140/81 100 Nasal 0.0 Cannula 11/30 1600 100.0 100 22 137/70 87 Nasal 0.0 Cannula 11/30 1559 99.0 11/30 1500 100 20 136/66 90 Nasal 0.0 Cannula 11/30 1400 101 20 117/81 100 Nasal 0.0 Cannula 11/30 1300 136/79 11/30 1300 101.7 93 17 97 Nasal 0.0 Cannula 11/30 1200 89 17 127/85 97 Nasal 0.0 Cannula 11/30 1100 89 16 125/68 93 Nasal 0.0 Cannula 11/30 1000 98.8 87 16 104/82 93 Nasal 0.0 Cannula 11/30 0900 101 19 132/71 95 Nasal 0.0 Cannula 11/30 0800 Nasal 2.0 Cannula 11/30 0800 102 20 128/78 94 Nasal 0.0 Cannula I&O 12/01 0000 11/30 1600 11/30 0800 Intake Total 400 280 300 Output Total 450 225 Balance 400 -170 75 General Appearance Cooperative, No acute distress, slightly lethargic Lungs Clear to auscultation Cardiovascular Regular rate and rhythm, Normal S1 and S2 Abdomen Normal bowel sounds, Soft, No tenderness Extremities No cyanosis, No clubbing, No edema Neurological Cranial nerves intact, No lateralizing signs, generalized weakness Psych/Mental Status Mood normal, slightly lethargic LAB Results Laboratory Tests 12/01 12/01 11/30 0507 0110 0825 Chemistry Plasma Sodium (136 - 145 mmol/L) 127 Plasma Potassium (3.5 - 5.1 mmol/L) 3.4 Plasma Chloride (98 - 107 mmol/L) 92 CO2 (Enzymatic) (21 - 32 mmol/L) 29 BUN (7 - 18 mg/dL) 11 Creatinine (0.6 - 1.3 mg/dL) 0.8 Est GFR ( Amer) (mL/min) >60 Est GFR (Non-Af Amer) (mL/min) >60 Glucose (70 - 110 mg/dL) 103 Plasma Calcium (8.5 - 10.1 mg/dL) 7.6 Total Bilirubin (0.0 - 1.0 mg/dL) 0.3 AST (15 - 37 U/L) 122 ALT (12 - 78 U/L) 72 Alkaline Phosphatase (46 - 116 U/L) 58 Ammonia (11 - 32 umol/L) < 10 Total Protein (6.4 - 8.2 g/dL) 6.0 Albumin (3.3 - 5.0 g/dL) 2.1 Coagulation INR (0.8 - 1.2) 0.9 Hematology WBC (4.5 - 11.5 K/uL) 5.6 RBC (4.50 - 5.90 M/uL) 4.16 Hgb (13.5 - 17.5 gm/dL) 12.5 Hct (41.0 - 53.0 %) 38.2 MCV (80 - 100 fL) 92 MCH (26 - 34 pg) 30 RDW (11.6 - 14.8 %) 14.2 Neut % (Auto) (50 - 75 %) 63 Lymph % (Auto) (25 - 40 %) 7 [place] % (Auto) (3 - 14 %) 4 Eos % (Auto) (0 - 4 %) 0 Baso % (Auto) (0 - 2 %) 0 Band Neutrophils % (0 - 8 %) 26 Metamyelocytes % (0 - 1 %) 0 Myelocytes (0 - 1 %) 0 Other Cell Type 0 Plt Count, EDTA (150 - 400 K/uL) 127 Anisocytosis (manual) 1+ PUBS MCHC (31 - 37 g/dL) 33 Toxicology Urine Opiates Screen (NEGATIVE) NEGATIVE Urine Methadone Screen (NEGATIVE) NEGATIVE Ur Barbiturates Screen (NEGATIVE) NEGATIVE U Amphetamin/Meth Scrn (NEGATIVE) POSITIVE MDMA (Ecstasy) Screen (NEGATIVE) NEGATIVE U Benzodiazepines Scrn (NEGATIVE) NEGATIVE Urine Cocaine Screen (NEGATIVE) NEGATIVE U Cannabinoids Screen (NEGATIVE) POSITIVE Urines Urine Color YELLOW Urine Appearance CLEAR Urine pH (5.0 - 8.0) 6.0 Ur Specific [place] (1.010 - 1.030) >= 1.030 Urine Protein (NEGATIVE) 2+ Urine Ketones (NEGATIVE) NEGATIVE Urine Blood (NEGATIVE) 1+ Urine Nitrite (NEGATIVE) NEGATIVE Urine Bilirubin (NEGATIVE) NEGATIVE Urine Urobilinogen (0.2 - 1.0 EU/dL) 0.2 Ur Leukocyte Esterase (NEGATIVE) NEGATIVE Urine RBC (0 - 1 rbc/hpf) 1-3 Urine WBC (0 - 1 wbc/hpf) 0-1 Ur Epithelial Cells (0 - 5 EPI/hpf) 1-3 Urine Bacteria (NONE SEEN) TRACE (<1+) Urine Glucose (NEGATIVE) NEGATIVE Urine Comment CULT NOT INDICATED Microbiology Date/Time Procedure - Status Source Growth 11/30 1755 Clostridium difficile Toxin A & B - COLB STOOL 11/30 1755 Specimen Source - COLB STOOL Assessment and Plan Problem List 1. Pneumonia Plan -Patient afebrile -WBC within normal limits with left shift -Blood cultures positive for gram-positive cocci -Continue Zosyn, vancomycin at this time secondary gram-positive cocci in blood culture. -Status improved -Monitor 2. Alcoholism Plan -No overt signs of alcohol withdrawal -Monitor -Continue alcohol withdrawal protocol 3. Tobacco use disorder Plan -Smoking cessation education -Encourage smoking abstinence post discharge -NicoDerm patch as needed 4. Hyponatremia Plan -Patient remains hyponatremic -Sodium stable at 127 -Fluid restriction -Monitor 5. Hypokalemia Status Acute Onset Date Unknown Plan -Patient with mild hypokalemia -Potassium 3.4 this a.m. -By mouth supplementation -Monitor 6. Anemia Status Acute Onset Date Unknown Plan -Patient with mild anemia -H&H: 12.5/38.5, MCV 92 -Check iron studies in a.m. -Monitor 7. Illicit drug use Status Chronic Onset Date Unknown Plan -Patient with history of illicit drug use -Encourage alcohol/drug treatment post hospitalization Current status: Fair, unstable Anticipated discharge date: Anticipated discharge in 2-3 days Anticipated discharge placement: Home Patient care time: Time spent in chart review, patient interview, physical exam, CPOE, and care documentation: 25 minutes Visit to patient today: 1 Complexity of care: Moderate E&M Codes Rounding: Inpt-Moderate/[id number]
--- NOTE | 2016-12-01 14:48 | NUR ---
Pharmacy to dose Vancomycin for GPC BC/PNA. Starting at 1500 mg IV q8hrs; will check trough early before 4th dose on 12/02/16. Steady state trough should be ~16. Pharmacy will follow. nick
--- NOTE | 2016-12-01 19:31 | NUR ---
Patient remains lethargic. Is more impulsive than he was yesterday. Gets out of bed and chair quickly - alarms in place for patient safety. Patient denies pain when asked. No complaints of nausea or vomiting.
[2016-12-02] VITALS (7 sets, daily range): BP systolic 92–131; BP diastolic 60–87
--- NOTE | 2016-12-02 02:07 | NUR ---
Pt alert to self, otherwise drowsy, started to chew pills whole crushed pt swallowed most of them with encouragement/pudding/water. Pt will take a few ice chips otherwise asleep most of shift. Removes O2 cannula replaced as pt allows to maintain sats greater than 92%. No resp distress. Bed alarm on for safety/fall prevention.VSS
--- NOTE | 2016-12-02 06:14 | NUR ---
Pt alert and stable, VSS, report given to Roxann STEPHENS, pt transferred [facility].
--- NOTE | 2016-12-02 06:45 | NUR ---
0600 Pt tx from ICU. Remains on tele, monitored in the unit. Ok to tx here per nsg sup. Pt resting quietly in bed. Is impulsive, so bed alarm on. Fluid restriction in place. Plan is Vanc trough @1030.
--- NOTE | 2016-12-02 07:36 | Progress Note ---
Subjective General Note Date: December 02, 2016 Admission Date: November 29, 2016 Hospital Day: 4 PCP: None Status: Inpatient Advanced Directive: FULL CODE Room: 304 Brief History: The patient is a 51-year-old white male with a significant past medical history of alcohol abuse/dependence, nicotine dependence-smoking, who presented to [facility] emergency department secondary to complaints of weakness, recurrent falls, and generalized malaise. [facility] ER evaluation was consistent with pneumonia, hyponatremia, alcohol abuse/dependence, and nicotine dependence-smoking. Secondary to the above, the patient was admitted by Christian Forrest M.D. for further evaluation and treatment. For other history present illness, past medical history, family history, social history, review of systems, and admission physical examination please see the patient's history and physical examination and ER visit note in the patient's medical record. Subjective: The patient states he is doing okay today other than generalized weakness which is slightly improved.. No nausea or vomiting. Denies shortness of breath. Patient requests: None Medications and Allergies Medications Current Medications Sig/Norberto Start time Last Medication Dose Route Stop Time Status Admin Clarify Med Order See Dose 1030 12/02 1030 AC Insts (1) IV 12/02 1031 Potassium Chloride 20 MEQ DAILY 12/02 0900 AC PO Vancomycin HCl 1,500 MG Q8H 12/01 1100 AC 12/02 Sodium Chloride 500 ML IV 0314 Piperacillin/ 50 ML Q6HR 11/30 1800 AC 12/02 Tazobactam/Dextrose IV 0504 Multivit/ 1 TAB DAILY 11/30 09 AC 12/01 Folic Acid/Iron PO 0818 Thiamine HCl 100 MG DAILY 11/30 0900 AC 12/01 PO 0818 Pantoprazole Sodium 40 MG DAILY@0600 11/30 0600 AC 12/02 IV 0504 Diazepam 5 MG PRN PRN 11/29 2014 AC IV Haloperidol Lactate 2 MG Q1H PRN 11/29 2014 AC IV Acetaminophen 650 MG Q4H PRN 11/29 1999 AC 11/30 PO 1714 Albuterol Sulfate 2.5 MG Q3H PRN 11/29 1999 AC IN Docusate Sodium 250 MG BID PRN 11/29 1999 AC PO Hydromorphone HCl 1 MG Q6H PRN 11/29 1999 AC IV Naloxone HCl 0.4 MG PRN PRN 11/29 1999 AC IV Ondansetron HCl 4 MG Q6H PRN 11/29 1999 AC IV Zolpidem Tartrate 5 MG QHS PRN 11/29 1999 AC PO Dose Instructions: (1)Clarify Med Order: VANCOMYCIN TROUGH Allergies Coded Allergies: NKA (11/30/16) Physical Exam Vital Signs / I&Os Vital Signs Date Time Temp Pulse Resp B/P Pulse O2 O2 Flow FiO2 Ox Delivery Rate 12/02 0725 98.1 85 24 131/84 96 2.0 12/02 0303 99.0 88 20 123/87 96 Nasal 2.0 Cannula 12/01 2320 98.8 109 24 112/93 94 Nasal 2.0 Cannula 12/01 1999 2.0 12/01 1957 2.0 12/01 1821 99.0 93 20 126/76 100 Nasal 2.0 Cannula 12/01 1701 99.1 95 20 122/68 99 Nasal 2.0 Cannula 12/01 1603 99.7 90 20 127/72 97 Nasal 2.0 Cannula 12/01 1503 100.4 86 20 127/68 95 Nasal 2.0 Cannula 12/01 1402 99.7 92 21 119/70 96 Nasal 2.0 Cannula 12/01 1343 90 18 130/77 97 Nasal 2.0 Cannula 12/01 1302 90 17 121/68 99 Nasal 2.0 Cannula 12/01 1145 86 16 124/74 100 Nasal 2.0 Cannula 12/01 1009 99.9 91 22 134/68 97 Nasal 2.0 Cannula 12/01 0932 2.0 12/01 0916 95 21 134/73 100 12/01 0849 99 17 124/87 97 Nasal 2.0 Cannula 12/01 0745 Nasal 2.0 Cannula I&O 12/02 0000 12/01 1600 12/01 0800 Intake Total 0 919 270 Output Total 600 600 Balance -600 919 -330 General Appearance Oriented X3, Cooperative, No acute distress, remains slightly lethargic Lungs Clear to auscultation Cardiovascular Regular rate and rhythm, Normal S1 and S2 Abdomen Normal bowel sounds, Soft, No tenderness Extremities No cyanosis, No clubbing Neurological Grossly normal other than slight lethargy Psych/Mental Status Mental status normal LAB Results Laboratory Tests 12/02 12/02 1756 9544 Chemistry Plasma Sodium (136 - 145 mmol/L) 131 Plasma Potassium (3.5 - 5.1 mmol/L) 3.3 Plasma Chloride (98 - 107 mmol/L) 95 CO2 (Enzymatic) (21 - 32 mmol/L) 29 BUN (7 - 18 mg/dL) 10 Creatinine (0.6 - 1.3 mg/dL) 0.8 Est GFR ( Amer) (mL/min) >60 Est GFR (Non-Af Amer) (mL/min) >60 Glucose (70 - 110 mg/dL) 93 Plasma Calcium (8.5 - 10.1 mg/dL) 7.2 Iron (35 - 150 ug/dL) 25 TIBC (260 - 445 ug/dL) 118 Iron Saturation (15 - 50 %) 21 Total Bilirubin (0.0 - 1.0 mg/dL) 0.4 AST (15 - 37 U/L) 164 ALT (12 - 78 U/L) 106 Alkaline Phosphatase (46 - 116 U/L) 58 Total Protein (6.4 - 8.2 g/dL) 5.4 Albumin (3.3 - 5.0 g/dL) 1.8 Hematology WBC (4.5 - 11.5 K/uL) 4.7 RBC (4.50 - 5.90 M/uL) 3.73 Hgb (13.5 - 17.5 gm/dL) 11.4 Hct (41.0 - 53.0 %) 34.5 MCV (80 - 100 fL) 92 MCH (26 - 34 pg) 31 RDW (11.6 - 14.8 %) 14.2 Neut % (Auto) (50 - 75 %) Pending Lymph % (Auto) (25 - 40 %) Pending Harrison % (Auto) (3 - 14 %) Pending Band Neutrophils % (0 - 8 %) Pending Plt Count, EDTA (150 - 400 K/uL) 120 PUBS MCHC (31 - 37 g/dL) 33 Assessment and Plan Problem List 1. Pneumonia Plan -Improved -Afebrile -WBC within normal limits but persistent left shift -Blood culture positive for coagulase-negative staph -Alter antimicrobials to Zosyn 3.375 g IV every 6 hours, DC vancomycin -Patient received full course of Zithromax -Monitor 2. Hyponatremia Plan -Improved -Sodium 131 (127-12/01/2016) -Continue fluid restriction -Monitor 3. Alcoholism Plan -stable -No signs of alcohol withdrawal syndrome -Monitor -Encourage alcohol abstinence post discharge 4. Tobacco use disorder Plan -Smoking cessation education -NicoDerm patch when necessary -Encourage smoking abstinence post discharge 5. Hypokalemia Status Acute Onset Date Unknown Plan -Mild -By mouth supplementation, additional 40 mEq by mouth today. Continue KCl 20 mEq by mouth every morning -Potassium 3.3 this a.m. -Monitor 6. Anemia Status Acute Onset Date Unknown Plan -Mild anemia -H&H: 11.4/34.5 -Iron studies within normal limits -Monitor 7. Illicit drug use Status Chronic Onset Date Unknown Plan -Patient with history of illicit drug use-marijuana/methamphetamine -Encourage enrollment in drug treatment program post hospitalization Current status: Fair, improved Anticipated discharge date: Anticipated discharge in 2 days Anticipated discharge placement: Home Patient care time: Time spent in chart review, patient interview, physical exam, CPOE, and care documentation: 25 minutes Visit to patient today: 1 Complexity of care: Moderate E&M Codes Rounding: Inpt-Moderate/85147
--- NOTE | 2016-12-02 14:40 | NUR ---
STILL VERY SLEEPY. ROUSES BREIFLY, GETS UP TO CHAIR FOR MEALS BUT HARDLY EATS ANYTHING, FALLS ASLEEP IN CHAIR. COOPERATIVE WHEN AWAKE, ABLE TO TAKE PO MEDS AND VOIDS USING URINAL, THEN QUICKLY FALLS SLEEP.
--- NOTE | 2016-12-02 16:23 | NUR ---
NUTRITION ASSESSMENT: S: Pt admitted with dx/o weakness, fever, cough, body aches and possibly flu. PMH inclues: ETOH abuse, tabacco use disorder, unintentionla wt loss of 50 pounds over the last 5 to 6 months. Pts family with visitors that appear supportive. Pt sits up in chair to eat meals but appears weak, can feed himself but pt does not eat a lot. During my conversation with pt, states that he has lost a lot of weight, d/t just not feeling good, poor appetite, illness. Pt denies chewing or swallowing problems. He does like boost shakes and willing to try chocolate. O: Diet Rx: General Diet 1.0 L fluid restriction NKFA Wts: 71.2 kg Ht: 72" IBW: 70-76 kg BMI: 21.3 Est Kcals: ~2845-3075 kcals per day Est Pro: ~75-85 g per day Est Fluids: ~per MD Meds Incl: KCL, protonix, PNV, B1 (thiamin), protonix, see eMar for complete list. Labs Incl: (12/02) glucose 93, BUN 10, Creat 0.8, Na+ 131, K+ 3.3, Ca+ 7.2, total pro 5.4, albumin 1.8, ast 164, HCT 34.5, HGB 11.4, MCV 92, MCH 31
--- NOTE | 2016-12-03 01:18 | NUR ---
Pt. is alert during care, but has trouble remembering why he is here in the hospital, and does not know what day it is. Pt. is impulsive, so bed alarm is on at all times. Pt. has history of falls. Wobbly while ambulating, so 1 person assist when getting OOB. Pt. had large loose stool. Pt. has SCD's on. Denies pain. Speech is mumbled/quiet. Call light within reach. Toileting offered frequently. WCTM.
[2016-12-03 02:48] VITALS: BP 103/65
[2016-12-03 06:14] VITALS: BP 111/81
--- NOTE | 2016-12-03 07:35 | Progress Note ---
Subjective General Note Date: December 02, 2016 Admission Date: November 29, 2016 Hospital Day: 4 PCP: None Status: Inpatient Advanced Directive: FULL CODE Room: 304 Brief History: The patient is a 51-year-old white male with a significant past medical history of alcohol abuse/dependence, nicotine dependence-smoking, who presented to [facility] emergency department secondary to complaints of weakness, recurrent falls, and generalized malaise. [facility] ER evaluation was consistent with pneumonia, hyponatremia, alcohol abuse/dependence, and nicotine dependence-smoking. Secondary to the above, the patient was admitted by Christian Forrest M.D. for further evaluation and treatment. For other history present illness, past medical history, family history, social history, review of systems, and admission physical examination please see the patient's history and physical examination and ER visit note in the patient's medical record. Subjective: The patient states he is doing okay today other than generalized weakness which is unchanged. No nausea or vomiting. Denies shortness of breath. Persistent dysarthria. Patient requests: None. Medications and Allergies Medications Current Medications Sig/Norberto Start time Last Medication Dose Route Stop Time Status Admin Potassium Chloride 20 MEQ DAILY 12/02 899 AC 12/02 PO 0827 Piperacillin/ 50 ML Q6HR 11/30 1800 AC 12/03 Tazobactam/Dextrose IV 0510 Multivit/ 1 TAB DAILY 11/30 09 AC 12/02 Folic Acid/Iron PO 08 Thiamine HCl 100 MG DAILY 11/30 09 AC 12/02 PO 08 Pantoprazole Sodium 40 MG DAILY@0600 11/30 0600 AC 12/03 IV 0510 Diazepam 5 MG PRN PRN 11/29 2014 AC IV Haloperidol Lactate 2 MG Q1H PRN 11/29 2014 AC IV Acetaminophen 650 MG Q4H PRN 11/29 1999 AC 11/30 PO 1714 Albuterol Sulfate 2.5 MG Q3H PRN 11/29 1999 AC IN Docusate Sodium 250 MG BID PRN 11/29 1999 AC PO Hydromorphone HCl 1 MG Q6H PRN 11/29 1999 AC IV Naloxone HCl 0.4 MG PRN PRN 11/29 1999 AC IV Ondansetron HCl 4 MG Q6H PRN 11/29 1999 AC IV Zolpidem Tartrate 5 MG QHS PRN 11/29 1999 AC PO Allergies Coded Allergies: NKA (11/30/16) Physical Exam Vital Signs / I&Os Vital Signs Date Time Temp Pulse Resp B/P Pulse O2 O2 Flow FiO2 Ox Delivery Rate 12/03 0614 98.1 72 20 111/81 93 Nasal 1.0 Cannula 12/03 0256 2.0 12/03 0248 98.1 82 20 103/65 93 Room Air 12/03 0121 1.0 12/02 2221 98.1 89 20 114/67 94 Nasal 1.0 Cannula 12/02 1942 101/65 91 12/02 1815 98.1 89 26 92/60 90 Room Air 12/02 1545 Room Air 12/02 1419 98.1 83 20 121/80 90 Room Air 12/02 1240 2.0 12/02 1014 97.2 83 20 122/80 92 Room Air 0.0 12/02 0914 Room Air I&O 12/03 0000 12/02 1600 12/02 0800 Intake Total 480 200 60 Output Total 850 400 600 Balance -370 -200 -540 General Appearance Alert, Oriented X3, Cooperative, No acute distress HEENT EOMI, ptosis present, flat affect Lungs Clear to auscultation Cardiovascular Regular rate and rhythm, Normal S1 and S2 Abdomen Normal bowel sounds, Soft, No tenderness, No guarding Extremities No cyanosis, No clubbing, No edema, diffuse weakness Neurological Cranial nerves intact, patient with bilateral ptosis, low volume speech, dysarthria, diffuse weakness Psych/Mental Status Mental status normal, Mood normal LAB Results Laboratory Tests 12/03 0755 Chemistry Plasma Sodium (136 - 145 mmol/L) 138 Plasma Potassium (3.5 - 5.1 mmol/L) 3.5 Plasma Chloride (98 - 107 mmol/L) 100 CO2 (Enzymatic) (21 - 32 mmol/L) 32 BUN (7 - 18 mg/dL) 10 Creatinine (0.6 - 1.3 mg/dL) 0.8 Est GFR ( Amer) (mL/min) >60 Est GFR (Non-Af Amer) (mL/min) >60 Glucose (70 - 110 mg/dL) 93 Plasma Calcium (8.5 - 10.1 mg/dL) 7.5 Plasma Magnesium (1.8 - 2.4 mg/dL) 2.3 TSH 3rd Generation (0.34 - 3.74 uIU/mL) Pending Hematology WBC (4.5 - 11.5 K/uL) 4.2 RBC (4.50 - 5.90 M/uL) 3.99 Hgb (13.5 - 17.5 gm/dL) 12.2 Hct (41.0 - 53.0 %) 36.8 MCV (80 - 100 fL) 92 MCH (26 - 34 pg) 31 RDW (11.6 - 14.8 %) 14.2 Neut % (Auto) (50 - 75 %) 67 Lymph % (Auto) (25 - 40 %) 21 [place] % (Auto) (3 - 14 %) 9 Eos % (Auto) (0 - 4 %) 0 Baso % (Auto) (0 - 2 %) 0 Band Neutrophils % (0 - 8 %) 3 Metamyelocytes % (0 - 1 %) 0 Myelocytes (0 - 1 %) 0 Other Cell Type 0 Plt Count, EDTA (150 - 400 K/uL) 167 Anisocytosis (manual) 1+ PUBS MCHC (31 - 37 g/dL) 33 Assessment and Plan Problem List 1. Pneumonia Plan -Status continues to improve -Afebrile -WBC within normal limits without left shift -Switch to oral medications in a.m. -Possible discharge in 1-2 days, patient may require placement in detention facility secondary to diffuse weakness 2. Hyponatremia Plan -Resolved -Sodium normal at 138 today -Discontinue fluid restriction -Monitor 3. Alcoholism Plan -Stable -Not problematic -No signs of alcohol withdrawal syndrome -Patient with history of excessive alcohol consumption prior to hospitalization. We will encourage curtailment of alcohol intake post discharge 4. Tobacco use disorder Plan -Stable -NicoDerm patch when necessary -Encourage smoking abstinence post discharge 5. Hypokalemia Status Acute Onset Date Unknown Plan -Resolved -Continue potassium supplementation -Potassium today 3.5 -Monitor -KCl 20 mEq by mouth daily 6. Anemia Status Acute Onset Date Unknown Plan -Patient with mild anemia -H&H: 12.2/36.8 (stable) -Monitor -Iron studies within normal limits. Iron percent saturation 21% 7. Illicit drug use Status Chronic Onset Date Unknown Plan -Patient with history of illicit drug use -Encouragement in enrollment in drug treatment post hospitalization 8. Weakness Status Acute Onset Date Unknown Plan -Patient with persistent diffuse weakness -Weakness shows no significant improvement over the past 48 hours appears unrelated to current pneumonia -Patient appears to have mild ptosis, and dysarthria and questionable swallowing problems -Obtain swallowing evaluation -Obtain antibody studies for suspected myasthenia gravis, LEMS. -Physical therapy consultation -Patient will most likely require placement in detention facility with rehabilitation based on current progress and needs post discharge Current status: Fair, unstable Anticipated discharge date: Anticipated discharge in 2 days Anticipated discharge placement: [facility] facility Patient care time: Time spent in chart review, patient interview, physical exam, CPOE, and care documentation: 35 minutes Visit to patient today: 2 Complexity of care: High E&M Codes Rounding: Inpt-High/44083 Patient care time: Time spent in chart review, patient interview, physical exam, CPOE, and care documentation: [ ] minutes Visit to patient today: [ ] Complexity of care: [ ] E&M Codes Rounding: Inpt-High/81253
--- NOTE | 2016-12-03 07:35 | Progress Note ---
Subjective General Note Date: December 02, 2016 Admission Date: November 29, 2016 Hospital Day: 4 PCP: None Status: Inpatient Advanced Directive: FULL CODE Room: 304 Brief History: The patient is a 51-year-old white male with a significant past medical history of alcohol abuse/dependence, nicotine dependence-smoking, who presented to [facility] emergency department secondary to complaints of weakness, recurrent falls, and generalized malaise. [facility] ER evaluation was consistent with pneumonia, hyponatremia, alcohol abuse/dependence, and nicotine dependence-smoking. Secondary to the above, the patient was admitted by Christian Forrest M.D. for further evaluation and treatment. For other history present illness, past medical history, family history, social history, review of systems, and admission physical examination please see the patient's history and physical examination and ER visit note in the patient's medical record. Subjective: The patient states he is doing okay today other than generalized weakness which is unchanged. No nausea or vomiting. Denies shortness of breath. Persistent dysarthria. Patient requests: None. Medications and Allergies Medications Current Medications Sig/Norberto Start time Last Medication Dose Route Stop Time Status Admin Potassium Chloride 20 MEQ DAILY 12/02 899 AC 12/02 PO 0827 Piperacillin/ 50 ML Q6HR 11/30 1800 AC 12/03 Tazobactam/Dextrose IV 0510 Multivit/ 1 TAB DAILY 11/30 09 AC 12/02 Folic Acid/Iron PO 08 Thiamine HCl 100 MG DAILY 11/30 09 AC 12/02 PO 08 Pantoprazole Sodium 40 MG DAILY@0600 11/30 0600 AC 12/03 IV 0510 Diazepam 5 MG PRN PRN 11/29 2014 AC IV Haloperidol Lactate 2 MG Q1H PRN 11/29 2014 AC IV Acetaminophen 650 MG Q4H PRN 11/29 1999 AC 11/30 PO 1714 Albuterol Sulfate 2.5 MG Q3H PRN 11/29 1999 AC IN Docusate Sodium 250 MG BID PRN 11/29 1999 AC PO Hydromorphone HCl 1 MG Q6H PRN 11/29 1999 AC IV Naloxone HCl 0.4 MG PRN PRN 11/29 1999 AC IV Ondansetron HCl 4 MG Q6H PRN 11/29 1999 AC IV Zolpidem Tartrate 5 MG QHS PRN 11/29 1999 AC PO Allergies Coded Allergies: NKA (11/30/16) Physical Exam Vital Signs / I&Os Vital Signs Date Time Temp Pulse Resp B/P Pulse O2 O2 Flow FiO2 Ox Delivery Rate 12/03 0614 98.1 72 20 111/81 93 Nasal 1.0 Cannula 12/03 0256 2.0 12/03 0248 98.1 82 20 103/65 93 Room Air 12/03 0121 1.0 12/02 2221 98.1 89 20 114/67 94 Nasal 1.0 Cannula 12/02 1942 101/65 91 12/02 1815 98.1 89 26 92/60 90 Room Air 12/02 1545 Room Air 12/02 1419 98.1 83 20 121/80 90 Room Air 12/02 1240 2.0 12/02 1014 97.2 83 20 122/80 92 Room Air 0.0 12/02 0914 Room Air I&O 12/03 0000 12/02 1600 12/02 0800 Intake Total 480 200 60 Output Total 850 400 600 Balance -370 -200 -540 General Appearance Alert, Oriented X3, Cooperative, No acute distress HEENT EOMI, ptosis present, flat affect Lungs Clear to auscultation Cardiovascular Regular rate and rhythm, Normal S1 and S2 Abdomen Normal bowel sounds, Soft, No tenderness, No guarding Extremities No cyanosis, No clubbing, No edema, diffuse weakness Neurological Cranial nerves intact, patient with bilateral ptosis, low volume speech, dysarthria, diffuse weakness Psych/Mental Status Mental status normal, Mood normal LAB Results Laboratory Tests 12/03 0755 Chemistry Plasma Sodium (136 - 145 mmol/L) 138 Plasma Potassium (3.5 - 5.1 mmol/L) 3.5 Plasma Chloride (98 - 107 mmol/L) 100 CO2 (Enzymatic) (21 - 32 mmol/L) 32 BUN (7 - 18 mg/dL) 10 Creatinine (0.6 - 1.3 mg/dL) 0.8 Est GFR ( Amer) (mL/min) >60 Est GFR (Non-Af Amer) (mL/min) >60 Glucose (70 - 110 mg/dL) 93 Plasma Calcium (8.5 - 10.1 mg/dL) 7.5 Plasma Magnesium (1.8 - 2.4 mg/dL) 2.3 TSH 3rd Generation (0.34 - 3.74 uIU/mL) Pending Hematology WBC (4.5 - 11.5 K/uL) 4.2 RBC (4.50 - 5.90 M/uL) 3.99 Hgb (13.5 - 17.5 gm/dL) 12.2 Hct (41.0 - 53.0 %) 36.8 MCV (80 - 100 fL) 92 MCH (26 - 34 pg) 31 RDW (11.6 - 14.8 %) 14.2 Neut % (Auto) (50 - 75 %) 67 Lymph % (Auto) (25 - 40 %) 21 Simpson % (Auto) (3 - 14 %) 9 Eos % (Auto) (0 - 4 %) 0 Baso % (Auto) (0 - 2 %) 0 Band Neutrophils % (0 - 8 %) 3 Metamyelocytes % (0 - 1 %) 0 Myelocytes (0 - 1 %) 0 Other Cell Type 0 Plt Count, EDTA (150 - 400 K/uL) 167 Anisocytosis (manual) 1+ PUBS MCHC (31 - 37 g/dL) 33 Assessment and Plan Problem List 1. Pneumonia Plan -Status continues to improve -Afebrile -WBC within normal limits without left shift -Switch to oral medications in a.m. -Possible discharge in 1-2 days, patient may require placement in retirement facility secondary to diffuse weakness 2. Hyponatremia Plan -Resolved -Sodium normal at 138 today -Discontinue fluid restriction -Monitor 3. Alcoholism Plan -Stable -Not problematic -No signs of alcohol withdrawal syndrome -Patient with history of excessive alcohol consumption prior to hospitalization. We will encourage curtailment of alcohol intake post discharge 4. Tobacco use disorder Plan -Stable -NicoDerm patch when necessary -Encourage smoking abstinence post discharge 5. Hypokalemia Status Acute Onset Date Unknown Plan -Resolved -Continue potassium supplementation -Potassium today 3.5 -Monitor -KCl 20 mEq by mouth daily 6. Anemia Status Acute Onset Date Unknown Plan -Patient with mild anemia -H&H: 12.2/36.8 (stable) -Monitor -Iron studies within normal limits. Iron percent saturation 21% 7. Illicit drug use Status Chronic Onset Date Unknown Plan -Patient with history of illicit drug use -Encouragement in enrollment in drug treatment post hospitalization 8. Weakness Status Acute Onset Date Unknown Plan -Patient with persistent diffuse weakness -Weakness shows no significant improvement over the past 48 hours appears unrelated to current pneumonia -Patient appears to have mild ptosis, and dysarthria and questionable swallowing problems -Obtain swallowing evaluation -Obtain antibody studies for suspected myasthenia gravis, LEMS. -Physical therapy consultation -Patient will most likely require placement in retirement facility with rehabilitation based on current progress and needs post discharge Current status: Fair, unstable Anticipated discharge date: Anticipated discharge in 2 days Anticipated discharge placement: senior living facility Patient care time: Time spent in chart review, patient interview, physical exam, CPOE, and care documentation: 35 minutes Visit to patient today: 2 Complexity of care: High E&M Codes Rounding: Inpt-High/28220 Patient care time: Time spent in chart review, patient interview, physical exam, CPOE, and care documentation: [ ] minutes Visit to patient today: [ ] Complexity of care: [ ] E&M Codes Rounding: Inpt-High/56071
[2016-12-03 10:22] VITALS: BP 100/67
--- NOTE | 2016-12-03 10:32 | NUR ---
PATIENT HAS OPEN AREAS AND SCRATCHES TO LOWER BACK, MEPILEX IN PLACE TO TWO OPEN AREAS. NO S/SXS OF INFECTION NOTED. WCTM
--- NOTE | 2016-12-03 10:51 | NUR ---
ASSUMED CARE OF PATIENT AT 1030AM, PREVIOUS NURSE ASSESSED PATIENT THIS MORNING WHEN SHE CAME ON SHIFT - I CONCUR WITH HER ASSESSMENT OF THE PATIENT.
--- NOTE | 2016-12-03 12:56 | NUR ---
NUTRITION FOLLOW UP NOTE: RD here to follow up today after yesterdays initial nutrition assessment (see 12/02 [address] assess). per nsg pt eating however some drooling noted and questionable or maybe even potential swallow problems. MD agreeable to swallow eval for food texture and liquid consistency changes if necessary as a precaution. RD glad to see this order put through. Pt ate ~50 % at dinner last isabel and ~90% of breakfast this am which leads me to beleive appetite is intact. Pt remains of a fluid restriction, good to see Na+ 138 today. Rec draw prealbumin as albumin lab 1.8 which may suggest depleted visceral protein stores? Prealbumin would help determine baseline. Pt does take boost but may need extra protein as well based on Prealbumin lab if MD agreeable and feels necessary. Will continue to monitor nutrition indices, pt appears at high nutritional risk 2/2 wt loss, wt down 9 pounds since yesterday?? Alerted nsg and requested re-weight. Will follow closely.
[2016-12-03 14:04] VITALS: BP 114/78
--- NOTE | 2016-12-03 18:49 | NUR ---
Patient was sleepy most of the day, then at dinner he woke up enough to eat most of his dinner by himself. While he was eating dinner, his girlfriend came and he has been awake and interacting with her since then. He still speaks slowly, but he is staying awake which is a positive change for him. He ambulated with the walker into the bathroom and was steadier on his feet then he has been. Will continue to monitor patient.
[2016-12-03 20:14] VITALS: BP 110/76
--- NOTE | 2016-12-03 22:03 | NUR ---
Pt. is alert and awake at this time. Lethargic and speech continues to be quiet, monotone, mumbled and slow. Pt. is oriented to place and self. Denies pain. Pt. continues to be on a fluid restriction. Bed alarm on due to occas. impulsiveness. Occas. pulls oxygen tubing off, is forgetful. Call light within reach. Attends on. Pt. girlfrienellen Burdick was at bedside but left before visiting hours ended. TM.
[2016-12-03 22:37] VITALS: BP 113/79
--- NOTE | 2016-12-04 02:05 | NUR ---
Pt. is resting in bed comfortably at this time. Still continues to be lethargic. Denies pain. Assisted pt. to use graduated cycliner to void into. Pt. continues to be impulsive, tried getting out of bed. Bed alarm on at all times. IV flushes without issues. WCTM.
[2016-12-04 02:12] VITALS: BP 114/76
[2016-12-04 07:06] VITALS: BP 112/79
--- NOTE | 2016-12-04 08:25 | Progress Note ---
Subjective General Note Date: December 04, 2016 Admission Date: November 29, 2016 Hospital Day: 6 PCP: None Status: Inpatient Advanced Directive: FULL CODE Room: 304 Brief History: The patient is a 51-year-old white male with a significant past medical history of alcohol abuse/dependence, nicotine dependence-smoking, who presented to [facility] emergency department secondary to complaints of weakness, recurrent falls, and generalized malaise. [facility] ER evaluation was consistent with pneumonia, hyponatremia, alcohol abuse/dependence, illicit drug use-methamphetamines, generalized weakness, and nicotine dependence-smoking. Secondary to the above, the patient was admitted by Christian Forrest M.D. for further evaluation and treatment. For other history present illness, past medical history, family history, social history, review of systems, and admission physical examination please see the patient's history and physical examination and ER visit note in the patient's medical record. Subjective: The patient states he is doing somewhat better today other than generalized weakness which is improved. No nausea or vomiting. Denies shortness of breath. Persistent dysarthria. Patient requests: None. Medications and Allergies Medications Current Medications Sig/Norberto Start time Last Medication Dose Route Stop Time Status Admin Potassium Chloride 20 MEQ DAILY 12/02 09 AC 12/04 PO 08 Piperacillin/ 50 ML Q6HR 11/30 1800 AC 12/04 Tazobactam/Dextrose IV 0525 Multivit/ 1 TAB DAILY 11/30 899 AC 12/04 Folic Acid/Iron PO 08 Thiamine HCl 100 MG DAILY 11/30 09 AC 12/04 PO 08 Pantoprazole Sodium 40 MG DAILY@0600 11/30 0600 12/04 IV 0524 Diazepam 5 MG PRN PRN 11/29 2014 AC IV Haloperidol Lactate 2 MG Q1H PRN 11/29 2014 AC IV Acetaminophen 650 MG Q4H PRN 11/29 1999 AC 11/30 PO 1714 Albuterol Sulfate 2.5 MG Q3H PRN 11/29 1999 AC IN Docusate Sodium 250 MG BID PRN 11/29 1999 AC PO Hydromorphone HCl 1 MG Q6H PRN 11/29 1999 AC IV Naloxone HCl 0.4 MG PRN PRN 11/29 1999 AC IV Ondansetron HCl 4 MG Q6H PRN 11/29 1999 AC IV Zolpidem Tartrate 5 MG QHS PRN 11/29 1999 AC PO Allergies Coded Allergies: NKA (11/30/16) Physical Exam Vital Signs / I&Os Vital Signs Date Time Temp Pulse Resp B/P Pulse O2 O2 Flow FiO2 Ox Delivery Rate 12/04 0706 97.9 68 15 112/79 96 Nasal 1.0 Cannula 12/04 0212 97.7 72 16 114/76 96 Nasal 1.0 Cannula 12/03 2237 97.3 67 16 113/79 99 Nasal 1.0 Cannula 12/03 2206 1.0 12/03 2013 98.2 72 16 110/76 98 Nasal 1.0 Cannula 12/03 1404 97.7 72 20 114/78 98 Nasal 1.0 Cannula 12/03 1022 97.7 66 16 100/67 96 Nasal 1.0 Cannula I&O 12/04 0000 12/03 1600 12/03 0800 Intake Total 624 400 Output Total 450 Balance 624 -50 General Appearance Cooperative, No acute distress, remains slightly lethargic but improved Breasts Scattered rhonchi, otherwise clear to auscultation Cardiovascular Regular rate and rhythm, Normal S1 and S2 Abdomen Normal bowel sounds, Soft, No tenderness Extremities No cyanosis, No clubbing, No edema Neurological Cranial nerves intact, cranial nerves intact other than ptosis. Generalized weakness slightly improved. No focal deficits Psych/Mental Status Mental status normal, Mood normal Assessment and Plan Problem List 1. Pneumonia Plan -Improved -Afebrile -WBC within normal limits -Switch to oral medications in a.m. if stable -Possible discharge in 1-2 days with improved status. Patient will require placement in rehabilitation at this point in time. Patient is homeless and may require longer stay in Hospital secondary to this issue. 2. Hyponatremia Plan -Resolved -Recheck in a.m. 3. Alcoholism Plan -Not problematic -Patient did not experience alcohol withdrawal syndrome -Encourage alcohol abstinence post discharge 4. Tobacco use disorder Plan -Smoking cessation education -Encourage smoking abstinence post discharge -NicoDerm patch when necessary 5. Hypokalemia Status Acute Onset Date Unknown Plan -Resolved -Recheck in a.m. 6. Anemia Status Acute Onset Date Unknown Plan -Patient with mild anemia -H&H: 12.2/36.8 (12/03/16) -Recheck in a.m. -Iron studies within normal limits 7. Illicit drug use Status Chronic Onset Date Unknown Plan -Patient with history of illicit drug use-methamphetamine -Encourage abstinence from illicit drugs post hospitalization 8. Elevated LFTs Status Acute Onset Date Unknown Plan -Patient with mild elevation of transaminases -Recheck in a.m. -Hepatitis screen negative -Monitor 9. Weakness Status Acute Onset Date Unknown Plan -Patient with generalized weakness which has been progressive over the past 2 weeks -Strength appears slightly improved today -Overweight evaluation for myasthenia gravis/LEMS -Patient probably unsafe to return to previous living situation-homeless living in the [facility] at this time -Look for insurance coverage with placement in rehabilitation for short-term versus longer stay in hospital with discharge to friends/family home Current status: Fair, improved Anticipated discharge date: Anticipated discharge in 3-4 days to home sooner t0 assisted living/[facility] facility Anticipated discharge placement: [facility]/assisted living versus home Patient care time: Time spent in chart review, patient interview, physical exam, CPOE, and care documentation: 25 minutes Visit to patient today: 2 Complexity of care: Moderate E&M Codes Rounding: Inpt-Moderate/[id number]
--- NOTE | 2016-12-04 08:25 | Progress Note ---
Subjective General Note Date: December 04, 2016 Admission Date: November 29, 2016 Hospital Day: 6 PCP: None Status: Inpatient Advanced Directive: FULL CODE Room: 304 Brief History: The patient is a 51-year-old white male with a significant past medical history of alcohol abuse/dependence, nicotine dependence-smoking, who presented to [facility] emergency department secondary to complaints of weakness, recurrent falls, and generalized malaise. [facility] ER evaluation was consistent with pneumonia, hyponatremia, alcohol abuse/dependence, illicit drug use-methamphetamines, generalized weakness, and nicotine dependence-smoking. Secondary to the above, the patient was admitted by Christian Forrest M.D. for further evaluation and treatment. For other history present illness, past medical history, family history, social history, review of systems, and admission physical examination please see the patient's history and physical examination and ER visit note in the patient's medical record. Subjective: The patient states he is doing somewhat better today other than generalized weakness which is improved. No nausea or vomiting. Denies shortness of breath. Persistent dysarthria. Patient requests: None. Medications and Allergies Medications Current Medications Sig/Norberto Start time Last Medication Dose Route Stop Time Status Admin Potassium Chloride 20 MEQ DAILY 12/02 09 AC 12/04 PO 08 Piperacillin/ 50 ML Q6HR 11/30 1800 AC 12/04 Tazobactam/Dextrose IV 0525 Multivit/ 1 TAB DAILY 11/30 899 AC 12/04 Folic Acid/Iron PO 08 Thiamine HCl 100 MG DAILY 11/30 09 AC 12/04 PO 08 Pantoprazole Sodium 40 MG DAILY@0600 11/30 0600 12/04 IV 0524 Diazepam 5 MG PRN PRN 11/29 2014 AC IV Haloperidol Lactate 2 MG Q1H PRN 11/29 2014 AC IV Acetaminophen 650 MG Q4H PRN 11/29 1999 AC 11/30 PO 1714 Albuterol Sulfate 2.5 MG Q3H PRN 11/29 1999 AC IN Docusate Sodium 250 MG BID PRN 11/29 1999 AC PO Hydromorphone HCl 1 MG Q6H PRN 11/29 1999 AC IV Naloxone HCl 0.4 MG PRN PRN 11/29 1999 AC IV Ondansetron HCl 4 MG Q6H PRN 11/29 1999 AC IV Zolpidem Tartrate 5 MG QHS PRN 11/29 1999 AC PO Allergies Coded Allergies: NKA (11/30/16) Physical Exam Vital Signs / I&Os Vital Signs Date Time Temp Pulse Resp B/P Pulse O2 O2 Flow FiO2 Ox Delivery Rate 12/04 0706 97.9 68 15 112/79 96 Nasal 1.0 Cannula 12/04 0212 97.7 72 16 114/76 96 Nasal 1.0 Cannula 12/03 2237 97.3 67 16 113/79 99 Nasal 1.0 Cannula 12/03 2206 1.0 12/03 2013 98.2 72 16 110/76 98 Nasal 1.0 Cannula 12/03 1404 97.7 72 20 114/78 98 Nasal 1.0 Cannula 12/03 1022 97.7 66 16 100/67 96 Nasal 1.0 Cannula I&O 12/04 0000 12/03 1600 12/03 0800 Intake Total 624 400 Output Total 450 Balance 624 -50 General Appearance Cooperative, No acute distress, remains slightly lethargic but improved Breasts Scattered rhonchi, otherwise clear to auscultation Cardiovascular Regular rate and rhythm, Normal S1 and S2 Abdomen Normal bowel sounds, Soft, No tenderness Extremities No cyanosis, No clubbing, No edema Neurological Cranial nerves intact, cranial nerves intact other than ptosis. Generalized weakness slightly improved. No focal deficits Psych/Mental Status Mental status normal, Mood normal Assessment and Plan Problem List 1. Pneumonia Plan -Improved -Afebrile -WBC within normal limits -Switch to oral medications in a.m. if stable -Possible discharge in 1-2 days with improved status. Patient will require placement in rehabilitation at this point in time. Patient is homeless and may require longer stay in Hospital secondary to this issue. 2. Hyponatremia Plan -Resolved -Recheck in a.m. 3. Alcoholism Plan -Not problematic -Patient did not experience alcohol withdrawal syndrome -Encourage alcohol abstinence post discharge 4. Tobacco use disorder Plan -Smoking cessation education -Encourage smoking abstinence post discharge -NicoDerm patch when necessary 5. Hypokalemia Status Acute Onset Date Unknown Plan -Resolved -Recheck in a.m. 6. Anemia Status Acute Onset Date Unknown Plan -Patient with mild anemia -H&H: 12.2/36.8 (12/03/16) -Recheck in a.m. -Iron studies within normal limits 7. Illicit drug use Status Chronic Onset Date Unknown Plan -Patient with history of illicit drug use-methamphetamine -Encourage abstinence from illicit drugs post hospitalization 8. Elevated LFTs Status Acute Onset Date Unknown Plan -Patient with mild elevation of transaminases -Recheck in a.m. -Hepatitis screen negative -Monitor 9. Weakness Status Acute Onset Date Unknown Plan -Patient with generalized weakness which has been progressive over the past 2 weeks -Strength appears slightly improved today -Overweight evaluation for myasthenia gravis/LEMS -Patient probably unsafe to return to previous living situation-homeless living in the [facility] at this time -Look for insurance coverage with placement in rehabilitation for short-term versus longer stay in hospital with discharge to friends/family home Current status: Fair, improved Anticipated discharge date: Anticipated discharge in 3-4 days to home sooner t0 assisted living[facility] Anticipated discharge placement: [facility]/assisted living versus home Patient care time: Time spent in chart review, patient interview, physical exam, CPOE, and care documentation: 25 minutes Visit to patient today: 2 Complexity of care: Moderate E&M Codes Rounding: Inpt-Moderate/[id number]
--- NOTE | 2016-12-04 10:49 | NUR ---
Pt presents with progressive weakness. Per MD, there is concern for neurodegenerative disease. Speech and swallowing evaluations were completed, per MD order. Speech: OME revealed decreased mandible movement, left sided facial weakness, and weak palatal elevation. Lingual strength and ROM was WFL, but speed and precision of movements was significantly reduced. Assessment of speech/voice dimentions indicated the following: monopitch, mild hypernasality, decreased respiratory support for phonation, dysprosody, and imprecise consonant articulation. s/z ratio was 2.43, which is severely outside of normal limits and suggests a concern for poor vocal fold adduction and question for vocal pathology. Vowel prolongation mean was 7.29 seconds which is significantly outside the norm of 20+ seconds for an adult male. Diadochokinetic rate was 14.4 reps in 5 seconds, 25-35 reps is WFL. Stress testing was completed as speech fatigue was noted, and pt demonstrated significant fatigue and was not able to count past 10, 8, and then 5 in three consecutive trials, indicating severe oral muscle fatigue. Intelligibility was 20%, WFL is 100%. Pt presents with severe flaccid dysarthria with question of neurodegenerative disease. Continued skilled ELECTRIC REPAIR SUPERVISOR tx is warranted to improve speech and assess for need of augmentative and alternative communication devices as pt is not able to clearly communicate personal, medical, and personal information clearly at this time. Swallowing: Labial escape of the bolus was observed on thin liquid trials. AP transit and mastication was slow due to poor mandibular ROM. Swallow reflex was delayed and audibly discoordinated. No overt s/s of aspiration were observed, however pt is at moderate risk for aspiration due to muscle fatigue and discoordination. Mild-mod dysphagia. Recommend mechanical soft textures, nectar thick liquids with meals, meds with nectar thick, and thin liquids between meals after oral care. ELECTRIC REPAIR SUPERVISOR tx is recommended to continue at d/c to monitor diet tolerance. Kristie Balderrama MA, [facility]-ELECTRIC REPAIR SUPERVISOR
[2016-12-04 11:23] VITALS: BP 118/82
--- NOTE | 2016-12-04 11:29 | NUR ---
pt supine in bed and agreeable to skilled PT treatment. pt completed supine to sit SBA. Once seated MMT was conducted and pt is grossly 5/5 on BUE and grossly 5/5 on BLE. pt completed sit to stand using FWW. Ambulated 300ft with FWW CGA->SBA Last 50ft he completed gait with No AD CGA. pt was steady on his feet but v/c to decrease speed. pt ambulated back to room and requested to return to bed. pt left with call connolly in place. RN turned on the bed alarm. pt's mobility is improving and close to baseline. Unsure living situation at this time and will continue to assess mobility needs. pt should ambulate with nursing 2-3x/day.
--- NOTE | 2016-12-04 12:34 | NUR ---
NUTRITION FOLLOW UP NOTE: Pt seen today by SLOT FLOORMAN. Rev'd assessment and noted that pt to have mech soft diet with NTL but ok for thins between meals with oral care. Good to see pt appetite good overal, he does like drinking boost as well per staff. Noted wt today 70#? Alerted nsg, rec re-weight. RD to continue to monitor nutrition indices and follow up prn/protocol.
[2016-12-04 14:30] VITALS: BP 116/78
--- NOTE | 2016-12-04 16:56 | NUR ---
PATIENT HAS NO COMPLAINTS AT THIS TIME, DENIES ANY PAIN, DENIES ANY CP OR PROBLEMS WITH BREATHING. AMBULATES IN THE ROOM INDEPENDTLY, DENIES ANY WEAKNESS OR DIZZINESS.
[2016-12-04 18:37] VITALS: BP 148/93
[2016-12-04 23:08] VITALS: BP 123/77
--- NOTE | 2016-12-04 23:35 | NUR ---
INCONTINENT OF STOOL IN BR AND IN BED. JANELLE CARE DONE. NEW BRIEF. NEW GOWN, BED PAD AND SOCKS. STOOL WAS LOOSE. BARRIER CREAM APPLIED TO ERYTHEMIC COCCYX.
[2016-12-05 03:19] VITALS: BP 106/67
--- NOTE | 2016-12-05 05:37 | NUR ---
VSS. A&Ox3. Speech is quiet and garbled. Very difficult to understand what pt is saying. Calls appropriately. Follows commands. Sleeping between care. Incontinent of BM x1 last night. Visitors in last night for a short period of time. No ETOH withdrawal sx at this time. Coccyx is slightly erythemic, but much improved compared to initial pcitures. Barrier cream applied. Myasthenia gravis being considered. Lab test to diagnose this disease was sent out and per Dr. Beach may take 1-2 weeks. Discharge planning/SW/Pt advocate working with pt to find placement and meet discharge needs. Bed in lowest position. Call light in reach. WCTM.
[2016-12-05 06:33] VITALS: BP 125/92
[2016-12-05 10:04] VITALS: BP 128/94
--- NOTE | 2016-12-05 10:37 | NUR ---
pt on left sidelying upon entering room. pt completed supine to sit I. pt completed sit to stand I. pt ambulated 300ft no AD but needed a few v/c to slow german. pt's mobility is close to baseline and is discharged to nursing to ambulated 2-3x/day. pt stated his girlfriend's house has no steps to enter. pt's mobility is safe to d/c once medically stable to his girlfriend's house.
[2016-12-05 14:31] VITALS: BP 114/79
--- NOTE | 2016-12-05 14:40 | NUR ---
PATIENT'S JERRY SCORE 17, WAFFLE OVERLAY PLACED ON BED. PATIENT AMBULATED AROUND THE FLOOR WITH PT, TOLERATED WELL. PATIENT TRANSFERRRING FROM THE BED TO THE CHAIR INDEPENDENLTY (WITH STAND-BY ASSIST), TOLERATED WELL.
--- NOTE | 2016-12-05 14:51 | NUR ---
Spoke [facility] pts RN, states coccyz erythema is much improved, no open areas on skin, multiple scabs, pt on WAFFLE mattress, will continue to monitor.
--- NOTE | 2016-12-05 14:55 | NUR ---
NUTRITION FOLLOW UP NOTE: Pt eating ~100% of [facility] soft NTL. Pt also accepting boost shakes. Pts wt now 70 kg, no sign wt loss noted or desired, normal fluctuations expected. Will continue to monitor intake, wts. Suggested MD order a prealbumin lab. Will follow.
--- NOTE | 2016-12-05 17:56 | Progress Note ---
Subjective General The patient is a 51-year-old white male with a significant past medical history of alcohol abuse/dependence, nicotine dependence-smoking, who presented to [facility] emergency department secondary to complaints of weakness, recurrent falls, and generalized malaise. [facility] ER evaluation was consistent with pneumonia, hyponatremia, alcohol abuse/dependence, illicit drug use-methamphetamines, generalized weakness, and nicotine dependence-smoking. Patients mentation has improved but the fact remains that this is unlike his previous behaviour as per the girlfriend. Patient is a lot more loud and violent, with very rash decision making. Patient does not have any focal neurological deficitis, however this is a derivation from the patients baseline. Constitutional Weakness. Denies: Fever, Chills, Sweats, Malaise, Other. Eyes Denies: Pain, Vision Change, Conjunctival Inflammation, Eyelid Inflammation, Redness, Other. ENT Denies: Ear Pain, Ear Discharge, Nose Pain, Nasal Discharge, Nasal Congestion, Mouth Pain, Mouth Swelling, Throat Pain, Throat Swelling, Other. Respiratory Denies: Cough, Dry, SOB w/exertion, Wheezing, Hemoptysis, Pleuritic Pain, Sputum , Other. Cardiovascular Denies: Chest Pain, Palpitations, Orthopnea, PND, Edema, Light-headedness, Other. Gastrointestinal Other (fecal incontinence ). Denies: Nausea, Vomiting, Abdominal Pain, Diarrhea , Constipation, Melena, Hematochezia. Genitourinary Incontinence. Denies: Dysuria, Frequency, Hematuria, Retention, Other. Musculoskeletal Denies: Neck Pain, Shoulder Pain, Arm Pain, Back Pain, Hand Pain, Leg Pain, Foot Pain, Other. Skin Denies: Rash, Lesions, Jaundice, Bruising, Other. Neurological Denies: Weakness, Numbness, Incoordination, Change in speech, Confusion, Seizures, Other. Physical Exam Vital Signs / I&Os Vital Signs Date Time Temp Pulse Resp B/P Pulse O2 O2 Flow FiO2 Ox Delivery Rate 12/05 1431 97.9 76 20 114/79 98 Room Air 12/05 1004 97.5 74 15 128/94 95 Room Air 12/05 0633 97.5 71 16 125/92 94 Room Air 12/05 0319 98.6 69 14 106/67 93 Room Air 12/04 2308 98.4 67 16 123/77 93 Room Air 12/04 2244 Room Air 12/04 1837 98.1 72 16 148/93 97 Room Air I&O 12/04 0800 12/04 1600 12/05 0000 Intake Total 50 500 220 Output Total 350 370 Balance -300 130 220 General Appearance Alert, No acute distress, not oriented to place or time HEENT Atraumatic, PERRLA, Moist mucous membranes Lungs Clear to auscultation Neck Supple, No JVD, No masses Cardiovascular Regular rate and rhythm, Normal S1 and S2, No murmurs, gallops, rubs Abdomen Soft, No rebound, No masses Extremities No clubbing, No edema, Strength = upper ext's, Strength = lower ext' s Skin No Breakdown, No Significant Lesions Neurological Normal gait, Normal speech, Sensation intact, Reflexes 2+ and equal , Cranial nerves intact Psych/Mental Status Mood normal LAB Results Laboratory Tests 12/05 0505 Chemistry Plasma Sodium (136 - 145 mmol/L) 141 Plasma Potassium (3.5 - 5.1 mmol/L) 4.4 Plasma Chloride (98 - 107 mmol/L) 103 CO2 (Enzymatic) (21 - 32 mmol/L) 31 BUN (7 - 18 mg/dL) 11 Creatinine (0.6 - 1.3 mg/dL) 0.7 Est GFR ( Amer) (mL/min) >60 Est GFR (Non-Af Amer) (mL/min) >60 Glucose (70 - 110 mg/dL) 87 Plasma Calcium (8.5 - 10.1 mg/dL) 7.6 Total Bilirubin (0.0 - 1.0 mg/dL) 0.3 AST (15 - 37 U/L) 162 ALT (12 - 78 U/L) 156 Alkaline Phosphatase (46 - 116 U/L) 64 Total Protein (6.4 - 8.2 g/dL) 5.9 Albumin (3.3 - 5.0 g/dL) 2.0 Assessment and Plan Problem List 1. Pneumonia Plan - WBC within normal limits -Possible discharge in 1-2 days with improved status. Patient will require placement in rehabilitation at this point in time. Patient is homeless and may require longer stay in Hospital secondary to this issue. 2. Alcoholism 3. Elevated LFTs Status Acute Onset Date Unknown Plan - -Patient with mild elevation of transaminases -will continue to trend - no abdominal pain 4. Weakness Status Acute Onset Date Unknown Plan - Pt on exam has no focal weakness and no neurological deficits from what i can see -Patient probably unsafe to return to previous living situation-homeless living in the [facility] at this time -Look for insurance coverage with placement in rehabilitation for short-term versus longer stay in hospital with discharge to friends/family home
[2016-12-05 18:56] VITALS: BP 126/83
--- NOTE | 2016-12-05 22:06 | NUR ---
Pt states feeling better today. Follows directions well and able to let needs known. He speaks softly and is somewhat still slurred. c/o intermittent numbness/discomfort on bilat hands, which he states is not new. Pt has RA. Upon transferring from bed/chair, pt was unsteady. Pt states this is still not his baseline. Will cont to monitor.
[2016-12-05 22:35] VITALS: BP 119/85
[2016-12-06 02:34] VITALS: BP 117/84
--- NOTE | 2016-12-06 02:40 | NUR ---
Report received from Melissa STEPHENS. Patient resting in bed with IV running. Pt had used urinal and sitting on bed table. When asked if knows where he is, gutteral/grunting sounds and then stated very quietly "andressa". Asked pt to look around room, pt kept head still and tracked items in room, with no response. Knows birthdate and name. Able to follow directions, have not seen use of call light yet. All other neuro checks intact. Monitoring closely. Bed low and locked. VSS.
--- NOTE | 2016-12-06 05:11 | NUR ---
PATIENT AMBULATED TO BR INDEPENDENTLY. ABLE TO COMMUNICATE WELL, JUST VERY QUIETLY. DENIES PAIN, CP AND NAUSEA. WCTM.
[2016-12-06 06:46] VITALS: BP 125/86
--- NOTE | 2016-12-06 08:38 | NUR ---
PATIENT SITTING UP IN CHAIR EATING BREAKFAST. DENIES PAIN. SEE SHIFT ASSESSMENT FOR FURTHER DETAILS.
[2016-12-06 10:33] VITALS: BP 114/72
[2016-12-06 14:33] VITALS: BP 118/93
--- NOTE | 2016-12-06 15:45 | NUR ---
PT IS AGITATED AND DISCUSSING LEAVING. PT ADVOCATE AND MD NOTIFIED. THIS RN TRIED DISCUSSING BENEFITS OF STAYING. PT DOESNT SEEM TO CARE AND WANTS TO LEAVE. PT ADVOCATE TALKING W/ PT CURRENTLY. MD TO GO IN NEXT.
--- NOTE | 2016-12-06 16:50 | NUR ---
PT AGITATED AND WANTED TO LEAVE. NOTIFIED AND DISCUSSED W/ PT TO NO AVAIL. THIS RN ALSO TRIED TO TELL PT BENEFITS OF STAYING. PT REFUSED AND SAID, "IM LEAVING NO MATTER WHAT." IV DC'D INTACT. AMA PAPER SIGNED. AMBULATED IND TO EXIT W/ THIS RN AT 1640.
--- NOTE | 2016-12-06 16:57 | Discharge Summary ---
Discharge Summary Report Admit Date 11/29/16 Discharge Date 12/06/16 Admission Diagnosis altered mental status, pneumonia Discharge Diagnosis altered mental status/pneumonia Brief History Patient is a 51 year old male with a hx of Alcoholism and Tobacco Use Disorder. He presents to the ER at [facility] complaining of a 1 day hx of significant weakness and inability to ambulate. Pt states he woke up yesterday, and did not have the strength to stand up. He states he is now not able to walk as he is so weak. Pt states he has been feeling unwell over the last 2 weeks. Pt states he has had a cough, with intermittent tactile fever and chills as well as nausea. Pt reports he has had increasing lethargy over the last 2 weeks and his speech has been slurred over the same period of time. Pt states he does drink beer regularly. His last drink was last night. Pt states his cough is productive of thick yellow colored sputum. He denies any chest pain but does report some mild shortness of breath. On further questioninging, pt reports an unintentional 50 lb weight loss over the last 5-6 months, as well as drenching night sweats regularly. Pt denies hemoptysis. Hospital Course Pt during his hospital stay was seen to improve gradually. Eventually patient was able to regain his motor function and coginition. However patient was seen to have vocal chord dysfunction and still was not able to speak at his baseline. Patient was advised to find out the cause behind this however patient is adament that he leave [facility]. Patient is currently not wavering on this decision to leave. Discharge Instructions/Meds - follow up with pmd as an out patient - take meds as prescribed
== END 2016-12-06 16:54 | disposition home or self-care (01) | DRG 139 ==
LOC: ED SRH 16:36 → TRANS SRH 19:54 → CC SRH 22:14 → ACUTE2 SRH 22:15 → CC SRH 22:15 → ACUTE2 SRH 22:15 → CC SRH 12-01 19:08 → ACUTE3 SRH 12-02 06:37 → ACUTE2 SRH 12-04 21:20
PROVIDERS: ADMIT Family Medicine
DX: J18.9 Pneumonia, unspecified organism (principal); E87.1 Hypo-osmolality and hyponatremia; R53.1 Weakness; R91.8 Other nonspecific abnormal finding of lung field; E87.6 Hypokalemia; D64.9 Anemia, unspecified; F15.10 Other stimulant abuse, uncomplicated; F10.20 Alcohol dependence, uncomplicated; Z91.81 History of falling; Z71.6 Tobacco abuse counseling; F17.210 Nicotine dependence, cigarettes, uncomplicated; Z59.0 Homelessness
CPT/HCPCS: 20011; 20012; 85241; 90004; 90047; 90065; 90074; 90100; 90112; 90327; 90328; 90329; 90934; 91295; 91400; 91583; 91585; 91588; 91672; 92132; 92668; 92670; 92720; 92760; 92761; 92762; 92763; 92764; 92765; 92766; 92767; 92810; 93004; 93140; 94060; 94139; 94140; 94141; 94144; 95059; 95061; 99787